=== PATIENT | female | born 1955 | race Caucasian/White ===

== ENCOUNTER 2022-01-26 19:39 | Inpatient (IN) | payer MEDICARE, OTHER ==
[~2022-01-26] VITALS: Ht 170.2 cm; Wt 82.7 kg
[2022-01-26 20:31] LABS: HEMATOCRIT 35.4 % (31.2-41.9); MEAN CORPUSCULAR VOLUME 94.3 fL (75.5-95.3); PLATELET COUNT (AUTO) 440 K/uL (179-408)
[2022-01-26 20:41] LABS: CHLORIDE 96 mmol/L (98-107); CREATININE 0.7 mg/dL (0.6-1.3); GLUCOSE 127 mg/dL (74-106); POTASSIUM 3.2 mmol/L (3.5-5.1); UREA NITROGEN, BLOOD 11 mg/dL (7-18)
[2022-01-26 20:42] LABS: CARBON DIOXIDE 48 mmol/L (21-32)
[2022-01-26 20:55] LABS: THYROID STIMULATING HORMONE 0.947 mIU/mL (0.358-3.740)
[2022-01-26 20:58] LABS: ALANINE AMINOTRANSFERASE 17 U/L (14-59); ALKALINE PHOSPHATASE 67 U/L (50-136); ASPARTATE AMINOTRANSFERASE 16 U/L (15-37); BILIRUBIN,DIRECT < 0.1 mg/dL (0.0-0.2); BILIRUBIN,TOTAL 0.1 mg/dL (0.2-1.0); TOTAL PROTEIN, SERUM 6.9 g/dL (6.4-8.2)
[2022-01-26] MEDS ORDERED: ETOMIDATE 20 MG/10 ML VIAL IV ONE (21:45)
[2022-01-26] MEDS ORDERED: PIPERACILLIN SODIUM/TAZOBACTAM 3.375 G in IV DEXTROSE 5% 50 ML IV ONE (21:45)
[2022-01-26] MEDS ORDERED: SUCCINYLCHOLINE CHLORIDE 200 MG/10 ML VIAL IV ONE (21:45)
[2022-01-26] MEDS ORDERED: AZITHROMYCIN IV 500 MG in IV DEXTROSE 5% 250 ML IV ONE (21:45)
[2022-01-26] MEDS ORDERED: PROPOFOL 100 ML IV PRN (21:45)
[2022-01-26] MEDS ORDERED: FENTANYL CITRATE 100 MCG/2 ML AMPUL ONE (22:34)
[2022-01-26] MEDS ORDERED: IV NS 1000 ML 1,000 ML IV ONE (23:45)
[2022-01-26] MEDS ORDERED: VANCOMYCIN 1G/D5W 200 ML PIGGYBACK IV ONE (23:45)
[2022-01-27] MEDS ORDERED: EPINEPHRINE 1:10,000 1 MG/10 ML DISP.SYRIN ONE
[2022-01-27 00:10] LABS: ABG BASE EXCESS 7.1 mmol/L; ABG HCO3 32.6 mmol/L; ABG PCO2 50.9 mmHg (35.0-45.0); ABG PH 7.425 (7.350-7.450); ABG PO2 56.5 mmHg (75.0-100.0); ABG SITE LEFT RADIAL; COHb 0.3 % (0.5-1.5); MetHb 0.1 % (0.0-1.5); O2Hb 91.1 % (94.0-97.0); VENT MODE VENT - A/C; VT, ABG 500 mL
[2022-01-27] MEDS ORDERED: NOREPINEPHRINE BITARTRATE 4 MG/4 ML VIAL IV ONE ×5 (00:12→12:59)
[2022-01-27] MEDS ORDERED: VANCOMYCIN IV 200 ML ONE (00:14)
[2022-01-27] MEDS ORDERED: PIPERACILLIN/TAZOBACTAM/D5W 50 ML IV ONE (00:14)
[2022-01-27] MEDS ORDERED: NOREPINEPHRINE BITARTRATE 8 MG in IV NORMAL SALINE 242 ML IV PRN ×3 (00:15→10:15)
[2022-01-27] MEDS ORDERED: PROPOFOL 100 ML ONE ×2 (00:55→05:37)
[2022-01-27] MEDS ORDERED: AZITHROMYCIN 500MG/ D5W 250ML IVPB **ER PYXIS ONLY IV ONE (00:56)
[2022-01-27] MEDS ORDERED: DORZ10DR11 LEFTEYE (01:00)
[2022-01-27] MEDS ORDERED: BUSP5TAB3 PO (01:00)
[2022-01-27] MEDS ORDERED: AMLO-212 PO (01:00)
[2022-01-27] MEDS ORDERED: HYDR12.55 PO (01:00)
[2022-01-27] MEDS ORDERED: GABA-532 PO (01:00)
[2022-01-27] MEDS ORDERED: MAGN400O6 PO (01:00)
[2022-01-27] MEDS ORDERED: ONDA-104 PO (01:00)
[2022-01-27] MEDS ORDERED: ZOLP5TAB2 PO (01:00)
[2022-01-27] MEDS ORDERED: BRIN8DRO OP (01:00)
[2022-01-27] MEDS ORDERED: CYCL5TAB PO (01:00)
[2022-01-27] MEDS ORDERED: BUSP10TA3 PO (01:00)
[2022-01-27] MEDS ORDERED: DOCU-141 PO (01:00)
[2022-01-27] MEDS ORDERED: NETA2.5D3 EACHEYE (01:00)
[2022-01-27] MEDS ORDERED: BUDE10.22 IH (01:00)
[2022-01-27] MEDS ORDERED: PILO15DR35 LEFTEYE (01:00)
[2022-01-27] MEDS ORDERED: CAPT25TA3 PO (01:00)
[2022-01-27] MEDS ORDERED: LEVE500T9 PO (01:00)
[2022-01-27] MEDS ORDERED: MEMA10TA PO (01:00)
[2022-01-27] MEDS ORDERED: HYDR-894 PO (01:00)
[2022-01-27] MEDS ORDERED: TRAZ-257 PO (01:00)
[2022-01-27] MEDS ORDERED: FAMO20TA8 PO (01:00)
[2022-01-27] MEDS ORDERED: METO-357 PO (01:00)
[2022-01-27] MEDS ORDERED: ACET-2154 PO (01:00)
[2022-01-27] MEDS ORDERED: ALBU2.5V38 IH (01:00)
[2022-01-27] MEDS ORDERED: QUET50TA PO (01:00)
[2022-01-27] MEDS ORDERED: FOLI1TAB94 PO (01:00)
[2022-01-27] MEDS ORDERED: diphenhydrAMINE 50 MG/1 ML VIAL IV ONE (02:15)
[2022-01-27] MEDS ORDERED: ONDANSETRON 4 MG/2 ML VIAL IV PRN (02:45)
[2022-01-27] MEDS ORDERED: FENTANYL CITRATE 100 MCG/2 ML AMPUL IV ONE (02:45)
[2022-01-27] MEDS ORDERED: hydrALAZINE HCL 20 MG/1 ML VIAL IV PRN (02:45)
[2022-01-27] MEDS ORDERED: ACETAMINOPHEN 325 MG TABLET PO PRN (02:45)
[2022-01-27] MEDS ORDERED: ALBUTEROL SULFATE 2.5 MG/3 ML NEBU NEB PRN (03:45)
--- NOTE | 2022-01-27 07:45 | NUR ---
Dr. De La Fuente at bedside for right femoral central line insertion.
--- NOTE | 2022-01-27 07:54 | NUR ---
PT RECEIVED ON LUNA VENTILATOR WITH VENT SETTINGS OF AC 18, VT 500, PEEP +5, FIO2 100%. PT IS ORALLY INTUBATED WITH A 7.5 ETT APPROXIMATELY 23CM AT THE LIP LINE. ETT IS PATENT AND SECURED VIA ANCHOR FAST. ETT TO BE READJUSTED Q2. VENT ALARMS CHECKED, ARE ON AND AUDIBLE. ORAL CARE DONE. SUCTION SMALL AMOUNT OF PALE SECRETIONS. AMBU BAG IS AT BEDSIDE. VENT IS PLUGGED IN TO RED EMERGENCY OUTLET. WILL CONTINUE TO MONITOR. WILL TITRATE FIO2 ACCORDINGLY.
[2022-01-27 08:31] LABS: BILIRUBIN,TOTAL 0.6 mg/dL (0.2-1.0); CREATININE 1.4 mg/dL (0.6-1.3); MAGNESIUM 1.3 mg/dL (1.8-2.4); TOTAL PROTEIN, SERUM 5.7 g/dL (6.4-8.2)
[2022-01-27 08:32] LABS: POTASSIUM 2.5 mmol/L (3.5-5.1)
--- NOTE | 2022-01-27 08:32 | NUR ---
Lab notified that potassium is 2.5. Will notify
--- NOTE | 2022-01-27 08:49 | NUR ---
Notified Dr Momin about potassium level.
[2022-01-27 08:52] LABS: HEMATOCRIT 33.2 % (31.2-41.9); MEAN CORPUSCULAR HEMOGLOBIN 29.2 uug (24.7-32.8); MEAN CORPUSCULAR VOLUME 93.4 fL (75.5-95.3); PLATELET COUNT (AUTO) 460 K/uL (179-408)
[2022-01-27] MEDS ORDERED: FAMOTIDINE 20 MG TABLET PO SCH (09:00)
[2022-01-27] MEDS: QUETIAPINE FUMARATE 25 MG TABLET PO SCH (09:00)
[2022-01-27] MEDS ORDERED: levETIRAcetam 500 MG TABLET PO SCH (09:00)
[2022-01-27] MEDS ORDERED: Brinzolamide/Brimonid Tart (Simbrinza 1%-0.2% Eye Drops) OP SCH (09:00)
[2022-01-27] MEDS: FOLIC ACID 1 MG TABLET PO SCH (09:00)
[2022-01-27] MEDS ORDERED: METOPROLOL SUCCINATE XL 50 MG TAB.SR.24H PO SCH ×2 (09:00)
[2022-01-27] MEDS ORDERED: busPIRone 10 MG TABLET PO SCH ×2 (09:00)
[2022-01-27] MEDS: GABAPENTIN 100 MG CAPSULE PO SCH ×3 (09:00→17:00)
[2022-01-27] MEDS: FLUTICASONE/VILANTEROL 1 EACH BLST.W.DEV INH SCH (09:00)
[2022-01-27] MEDS ORDERED: AMLODIPINE 5 MG TABLET PO SCH ×2 (09:00)
[2022-01-27] MEDS: MEMANTINE HCL 10 MG TABLET PO SCH (09:00)
[2022-01-27] MEDS: ASPIRIN 81 MG TAB.CHEW PO SCH (09:00)
[2022-01-27] MEDS ORDERED: PILOCARPINE 1% OPHT DROP 15 ML BOTTLE LEFTEYE SCH (09:00)
[2022-01-27] MEDS ORDERED: HEPARIN SODIUM,PORCINE 5,000 UNITS/ML VIAL SQ SCH (09:00)
[2022-01-27] MEDS ORDERED: MAGNESIUM SULFATE/D5W 100 ML IV SCH (09:15)
[2022-01-27] MEDS ORDERED: MAGNESIUM SULFATE/D5W 100 ML ONE (09:25)
[2022-01-27] MEDS ORDERED: POTASSIUM CHLORIDE 50 ML ONE (09:25)
[2022-01-27] MEDS ORDERED: MAGNESIUM SULFATE/D5W 300 ML ONE (09:26)
[2022-01-27] MEDS ORDERED: POTASSIUM CHLORIDE 150 ML ONE (09:26)
[2022-01-27 09:33] VITALS: BP 88/57
[2022-01-27] MEDS: POTASSIUM CHLORIDE 50 ML IV SCH ×4 (09:49→12:00)
--- NOTE | 2022-01-27 10:20 | NUR ---
Spoke with ICU MD - pt intubated, current monitor in room sometimes shows vitals unable to determine if medications need to be titrated, troubleshooting monitors with RT Mariella) help. Pt has 2 chest tube, currently Levo @0.6mcg/ IVF @ 125ml, Propofol @ 10mcg, Potassium currently being replaced - will replace Mag after all K+ has been infused. Portable suction cansister at bedside - bilateral chest tube attached to current wall suction - 100 Fi02 on Vent / peep of 5/ TV 500, R 18 - Barrera - urine output 200 since 6am MD acknowledge - will continue to do the best we can, untilpt can be transferred to the unit.
[2022-01-27] MEDS ORDERED: PIPERACILLIN SODIUM/TAZOBACTAM 3.375 G in IV DEXTROSE 5% 50 ML IV ONE (12:00)
[2022-01-27] MEDS: FENTANYL CITRATE/PF 1,000 MCG in IV NORMAL SALINE 80 ML IV PRN ×2 (12:30→12:40)
[2022-01-27] MEDS ORDERED: NOREPINEPHRINE BITARTRATE 32 MG in IV NORMAL SALINE 218 ML IV PRN (13:30)
--- NOTE | 2022-01-27 14:05 | NUR ---
PT BROUGHT DOWN FOR CT-SCAN. REMAINS ON LUNA VENTILATOR. AMBU BAG AT BEDSIDE. NO ISSUES NOTED.
[2022-01-27 15:22] LABS: CREATININE 1.5 mg/dL (0.6-1.3); POTASSIUM 3.4 mmol/L (3.5-5.1)
[2022-01-27] MEDS: DORZOLAMIDE/TIMOLOL OPHT DROP 10 ML BOTTLE LEFTEYE SCH (15:25)
[2022-01-27] MEDS ORDERED: SUCCINYLCHOLINE CHLORIDE 200 MG/10 ML VIAL IV ONE (15:44)
--- NOTE | 2022-01-27 17:35 | NUR ---
pt developed severe crepitus in bilateral upper extremity, across the chest, up into the neck and face - ED MD notified , consulted with ICU Team - R. chest tube removed - pt sent for Chest and Neck CT see results - Unable to get a steady BP throughout shift due to severe crepitus in bilateral UE , when BP cuff removed looks like a sea of bubbles fill the Upper arms - notified ED Md - referred to Dr. Dockery for potential A.Line for accurate BP reading - spoke with Dr. Dockery suggested we take BP on bilateral LE - 4 attempts made on bilateral extremity - unable to obtain a reading. Follow up call placed to to notify him, awaiting a call back. EKG leads changed and repositioned several times unable to get a EKG reading, HR noted however of 91 - extreme crepitus in chest upper chest cavity. - pt suctioned throughout shift via RT and RN , oral care done q4h - pt had 1 BM - temporal temp checked 96.3 extremities feel cold to the touch, pillows used to elevate arms, HOB 30 degrees , bilateral LE elevated on pillows - rectal temp done 100.3 - Dr. Dockery called back - will locate someone who can insert an A.line for accurate BP. Spoke with CN - need a monitor in the room that can monitor an A.Line once inserted or pt needs to be moved to a room with the proper equipment to monitor her critical status. Vent settings have been weaned starting FIo2 was 100% at time of documentation FIo2 is @ 70% - TV remains @500 Peep @ 5 and Rate @ 18. NO NGT or OGT was placed - unable to give PO meds. peripheral IV x 2 in R (W) and (FA) removed - not patent. Echo was unsucceful - tech states too much air he could not get a good picture. sent whatever image he could obtain to the recoverer. Skin Pt has a skin tear on the R. lateral ac area - excoritation under bilateral breast - groin area red, buttocks area red - no barrier cream available. subtle changes in position made to offload pressure to sacrum. Pt recieved (4) bags of Potassium/ (4) bags of magnesium , Propofol stopped around 1230 - Versed and Fentanyl started - Fentanyl at 50mcg d/t HR greater than 100 - received ABX around 1500 from RX.
[2022-01-27] MEDS ORDERED: VANCOMYCIN IV 1,000 MG in IV DEXTROSE 5% 250 ML IV SCH (18:00)
[2022-01-27] MEDS ORDERED: methylPREDNISolone SOD SUCC 40 MG/ML VIAL ONE ×2 (18:31→21:03)
[2022-01-27] MEDS: methylPREDNISolone SOD SUCC 40 MG/ML VIAL IV SCH ×2 (18:33→22:00)
[2022-01-27] MEDS: PIPERACILLIN SODIUM/TAZOBACTAM 3.375 G in IV DEXTROSE 5% 100 ML IV SCH (20:28)
[2022-01-27] MEDS: ATORVASTATIN 40 MG TABLET PO SCH (21:00)
[2022-01-27] MEDS ORDERED: HEPARIN SODIUM,PORCINE 5,000 UNITS/ML VIAL ONE (21:04)
[2022-01-28] VITALS (36 sets, daily range): BP systolic 76–246; BP diastolic 45–101
[2022-01-28] MEDS ORDERED: PHENYLEPHRINE IV 100 MG in IV NORMAL SALINE 240 ML IV PRN (01:00)
[2022-01-28] MEDS ORDERED: PHENYLEPHRINE 10 MG/1 ML VIAL ONE (01:08)
[2022-01-28] MEDS ORDERED: FENTANYL CITRATE 100 MCG/2 ML AMPUL ONE (03:14)
[2022-01-28] MEDS: FENTANYL CITRATE/PF 1,000 MCG in IV NORMAL SALINE 80 ML IV PRN (03:40)
[2022-01-28] MEDS: PIPERACILLIN SODIUM/TAZOBACTAM 3.375 G in IV DEXTROSE 5% 100 ML IV SCH ×3 (04:57→20:31)
[2022-01-28 05:03] LABS: HEMATOCRIT 29.9 % (31.2-41.9); MEAN CORPUSCULAR HEMOGLOBIN 29.7 uug (24.7-32.8); MEAN CORPUSCULAR VOLUME 93.3 fL (75.5-95.3); PLATELET COUNT (AUTO) 411 K/uL (179-408)
[2022-01-28 05:13] LABS: BILIRUBIN,TOTAL 0.4 mg/dL (0.2-1.0); CREATININE 1.7 mg/dL (0.6-1.3); MAGNESIUM 2.6 mg/dL (1.8-2.4); POTASSIUM 3.1 mmol/L (3.5-5.1); TOTAL PROTEIN, SERUM 5.6 g/dL (6.4-8.2)
[2022-01-28] MEDS: methylPREDNISolone SOD SUCC 40 MG/ML VIAL IV SCH ×3 (06:00→22:13)
[2022-01-28 06:05] LABS: ABG BASE EXCESS 6.6 mmol/L; ABG HCO3 26.1 mmol/L; ABG PCO2 22.8 mmHg (35.0-45.0); ABG PH 7.677 (7.350-7.450); ABG PO2 67.7 mmHg (75.0-100.0); ABG SITE LEFT RADIAL; ABG TOTAL HEMOGLOBIN 11.1 G/dL (12.0-16.0); COHb 0.1 % (0.5-1.5); MetHb 0.3 % (0.0-1.5); O2Hb 96.5 % (94.0-97.0); VENT MODE VENT - A/C; VT, ABG 500 mL
[2022-01-28] MEDS ORDERED: FUROSEMIDE 20 MG/2 ML VIAL IV SCH (06:45)
[2022-01-28] MEDS ORDERED: POTASSIUM PHOSPHATE MM 30 MMOL in IV NORMAL SALINE 250 ML IV ONE (06:45)
[2022-01-28] MEDS ORDERED: FUROSEMIDE 20 MG/2 ML VIAL ONE (06:46)
[2022-01-28] MEDS ORDERED: methylPREDNISolone SOD SUCC 40 MG/ML VIAL ONE ×3 (06:46→22:11)
--- NOTE | 2022-01-28 07:20 | NUR ---
Received pt. On ventilator ETT 7.5 to 130 wall suction continuously when questioned endorsing rn. did not know order setting. Patient move to room 1A. Ventilator A/C 18, TV 500, FIO2 65%. Peep+5. On patient monitor with no cardiac reading. Unreadable saturation. Versed running at 2mg/hr. Fentanyl 50mcg/hr. Chest tube with chamber mixed with blood. Barrera to gravity Central line patent. Patient with severe crepitus enlarge chest area neck with underskin air noted. breast area blown with subcutaneous air. BUE bruises and redness in the sacral area. Will continue to monitor.
--- NOTE | 2022-01-28 07:25 | NUR ---
Received pt. with low sbp 76/55 HR 88 with no reading on/off rehabilitation technician notified and phenylephrine maxed out while awaiting for arterial line insertion.
--- NOTE | 2022-01-28 07:35 | NUR ---
Pulmonary services Dr. Ureña in the unit to examine pt. report given and He was present when chest tube changed and aware of severe blood cloth noted at chest tube insertion site and tubing. As stated by him "Dr. Gracia will be consulted." And order to change TV to 400 received and implemented at this time. RT Uriah at bedside.
--- NOTE | 2022-01-28 08:00 | NUR ---
After settling pt. in room 1A Instructional Services Librarian called to report low sbp reading orders to start levophed received.
[2022-01-28] MEDS: POTASSIUM PHOSPHATE MM 15 MMOL in IV NORMAL SALINE 250 ML IV SCH ×2 (08:15→14:15)
[2022-01-28] MEDS ORDERED: NOREPINEPHRINE BITARTRATE 32 MG in IV NORMAL SALINE 218 ML IV PRN (08:30)
[2022-01-28] MEDS: FLUTICASONE/VILANTEROL 1 EACH BLST.W.DEV INH SCH (09:00)
[2022-01-28] MEDS: QUETIAPINE FUMARATE 25 MG TABLET PO SCH (09:00)
[2022-01-28] MEDS: MEMANTINE HCL 10 MG TABLET PO SCH (09:00)
[2022-01-28] MEDS: ASPIRIN 81 MG TAB.CHEW PO SCH (09:00)
[2022-01-28] MEDS: GABAPENTIN 100 MG CAPSULE PO SCH ×3 (09:00→17:00)
[2022-01-28] MEDS: DORZOLAMIDE/TIMOLOL OPHT DROP 10 ML BOTTLE LEFTEYE SCH ×2 (09:00→16:49)
[2022-01-28] MEDS: FOLIC ACID 1 MG TABLET PO SCH (09:00)
--- NOTE | 2022-01-28 09:05 | NUR ---
Cardiology services, Dr. Momin in the unit Arterial line insertion in progress.
--- NOTE | 2022-01-28 09:25 | NUR ---
Arterial line in place with fist reading of 246/101 levophed off at this time Bonderizer Operator Dr. Momin at bedside.
[2022-01-28] MEDS: FAMOTIDINE. 20 MG/2 ML VIAL IV SCH (09:44)
[2022-01-28] MEDS ORDERED: FAMOTIDINE. 20 MG/2 ML VIAL IV ONE (09:51)
[2022-01-28] MEDS: MIDAZOLAM HCL 50 MG in IV NORMAL SALINE 40 ML IV PRN ×2 (10:01→13:31)
[2022-01-28] MEDS: PHENYLEPHRINE IV 100 MG in IV NORMAL SALINE 240 ML IV PRN ×2 (10:02→11:42)
[2022-01-28] MEDS: IV D5/ 0.9% NACL 1,000 ML IV PRN (11:40)
--- NOTE | 2022-01-28 13:06 | NUR ---
FIO2 down to 50%
[2022-01-28] MEDS ORDERED: HEPARIN SODIUM,PORCINE 5,000 UNITS/ML VIAL ONE ×2 (13:28→22:11)
[2022-01-28] MEDS: HEPARIN SODIUM,PORCINE 5,000 UNITS/ML VIAL SQ SCH ×2 (13:36→22:14)
[2022-01-28 13:59] LABS: ABG BASE EXCESS 4.3 mmol/L; ABG HCO3 23.4 mmol/L; ABG PCO2 20.4 mmHg (35.0-45.0); ABG PH 7.678 (7.350-7.450); ABG PO2 68.7 mmHg (75.0-100.0); ABG SITE A-Line; ABG TOTAL HEMOGLOBIN 10.9 G/dL (12.0-16.0); COHb 0.3 % (0.5-1.5); MetHb 0.3 % (0.0-1.5); VENT MODE VENT - A/C; VT, ABG 400 mL
--- NOTE | 2022-01-28 14:23 | NUR ---
1400 ABG results notified to outplacement consultant Dr. Ureña order to reduce Tv 350 and RRate 15. orders informed to RT. Kruse and implemented.
[2022-01-28] MEDS ORDERED: PILOCARPINE 1% OPHT DROP 15 ML BOTTLE LEFTEYE SCH (17:00)
--- NOTE | 2022-01-28 18:33 | NUR ---
Left patient On ventilator ETT 7.5 LL23, A/C 15, Tv 350, FIO2 50%, with saturation between 95-98%. On radiation monitor and Sinus rhythm. Arterial line paten pleth smooth and even reading within desired limits, phenylephrine running at 1mcg/kg/min.Chest tube with insertion site clogged. Neuro-stein pt. remains on versed running at 2mg/hr and fentanyl running at 50mcg/kg/min. Foleywith adequate output. Will endorse to incoming shift.
--- NOTE | 2022-01-28 20:10 | NUR ---
called and infromed Dr. Desai who is oncall for cardiothoracic that the audible air leak from Left insertion site will not affect patient at this point. They were able to reciew CXR earlier and is most likely not in place and is just subcutaneous only. no orders received.
[2022-01-28] MEDS: ATORVASTATIN 40 MG TABLET PO SCH (20:51)
[2022-01-28] MEDS: levETIRAcetam IV 500 MG in IV DEXTROSE 5% 100 ML IV SCH (20:51)
[2022-01-29] VITALS (32 sets, daily range): BP systolic 89–167; BP diastolic 48–81
--- NOTE | 2022-01-29 00:20 | NUR ---
PATIENT ON CONT LUNA VENT WITH 7.5 ET/TUBE IN PLACE WITH ANCHOR FAST MOVE Q2 HOURS, CURRENT VENT SETTINGS, A/C 15, VT 350, PEEP5 , FIO2 @ 50% , SUCTION VERY LITTLE SECRETIONS, AND SUCTION MOUTH WITH KEHINDE AC WITH A/LINE IN PLACE, NO VENT CHANGES MADE, CHANGE HME, ALL VENT ALARMS GOOD, AMBU BAG AT BEDSIDE, SAT 97%. APPROX. D CRUZITO FARFAN Addendum: 01/29/22 at 0024 by LISBETH EAST RT Amended: Links added.
[2022-01-29] MEDS: FENTANYL CITRATE/PF 1,000 MCG in IV NORMAL SALINE 80 ML IV PRN (01:49)
[2022-01-29] MEDS: PIPERACILLIN SODIUM/TAZOBACTAM 3.375 G in IV DEXTROSE 5% 100 ML IV SCH ×3 (04:30→20:00)
[2022-01-29 05:02] LABS: ALANINE AMINOTRANSFERASE 81 U/L (14-59); ALKALINE PHOSPHATASE 68 U/L (50-136); ASPARTATE AMINOTRANSFERASE 76 U/L (15-37); BILIRUBIN,DIRECT < 0.1 mg/dL (0.0-0.2); BILIRUBIN,TOTAL 0.2 mg/dL (0.2-1.0); CARBON DIOXIDE 25 mmol/L (21-32); CHLORIDE 107 mmol/L (98-107); CREATININE 1.2 mg/dL (0.6-1.3); GLUCOSE 215 mg/dL (74-106); MAGNESIUM 1.9 mg/dL (1.8-2.4); PHOSPHOROUS 2.9 mg/dL (2.5-4.9); TOTAL PROTEIN, SERUM 5.3 g/dL (6.4-8.2); UREA NITROGEN, BLOOD 22 mg/dL (7-18); VANCOMYCIN,RANDOM 15.7 ug/mL (18.0-26.0)
[2022-01-29 05:14] LABS: POTASSIUM 1.7 mmol/L (3.5-5.1)
[2022-01-29] MEDS ORDERED: POTASSIUM CHLORIDE 50 ML IV SCH ×2 (05:30→17:00)
[2022-01-29 05:32] LABS: MEAN CORPUSCULAR HEMOGLOBIN 29.4 uug (24.7-32.8); MEAN CORPUSCULAR VOLUME 90.2 fL (75.5-95.3); PLATELET COUNT (AUTO) 388 K/uL (179-408)
[2022-01-29] MEDS ORDERED: POTASSIUM CHLORIDE 300 ML ONE (05:32)
--- NOTE | 2022-01-29 05:41 | NUR ---
Per Dr. Mitchell ordered 40 meq KCL IV BID x 3 days. and 2 gram calcium gluconate.
[2022-01-29] MEDS ORDERED: CALCIUM GLUCONATE IV 1 GM in IV NORMAL SALINE 100 ML IV ONE (05:45)
[2022-01-29] MEDS: POTASSIUM CHLORIDE 50 ML IV SCH ×8 (05:45→17:55)
[2022-01-29] MEDS ORDERED: methylPREDNISolone SOD SUCC 40 MG/ML VIAL ONE ×4 (05:50→23:31)
[2022-01-29] MEDS: methylPREDNISolone SOD SUCC 40 MG/ML VIAL IV SCH ×2 (05:51→18:02)
[2022-01-29 06:24] LABS: ABG BASE EXCESS 3.5 mmol/L; ABG HCO3 24.3 mmol/L; ABG PCO2 25.1 mmHg (35.0-45.0); ABG PH 7.604 (7.350-7.450); ABG SITE A-Line; ABG TOTAL HEMOGLOBIN 10.4 G/dL (12.0-16.0); COHb 0.3 % (0.5-1.5); MetHb 0.3 % (0.0-1.5); O2Hb 96.6 % (94.0-97.0); VENT MODE VENT - A/C; VT, ABG 350 mL
[2022-01-29 06:51] LABS: LYMPHOCYTES % (MANUAL) 5 % (20-40); MONOCYTES % (MANUAL) 3 % (2-10); NEUTROPHILS % (MANUAL) 92 % (42-75)
[2022-01-29] MEDS: HEPARIN SODIUM,PORCINE 5,000 UNITS/ML VIAL SQ SCH ×2 (09:00→21:00)
[2022-01-29] MEDS: ASPIRIN 81 MG TAB.CHEW PO SCH (09:00)
[2022-01-29] MEDS: QUETIAPINE FUMARATE 25 MG TABLET PO SCH (09:00)
[2022-01-29] MEDS ORDERED: POTASSIUM CHLORIDE 20 MEQ POWDER PACKET GT ONE (09:00)
[2022-01-29] MEDS: GABAPENTIN 100 MG CAPSULE PO SCH ×3 (09:00→17:00)
[2022-01-29] MEDS: MEMANTINE HCL 10 MG TABLET PO SCH (09:00)
[2022-01-29] MEDS: FOLIC ACID 1 MG TABLET PO SCH (09:00)
[2022-01-29] MEDS ORDERED: CALCIUM GLUCONATE IV 2 GM in IV NORMAL SALINE 100 ML IV ONE (09:00)
[2022-01-29] MEDS ORDERED: VANCOMYCIN IV 1,000 MG in IV DEXTROSE 5% 250 ML IV ONE (12:00)
[2022-01-29] MEDS: DORZOLAMIDE/TIMOLOL OPHT DROP 10 ML BOTTLE LEFTEYE SCH ×2 (12:56→18:07)
[2022-01-29] MEDS ORDERED: levETIRAcetam 500 MG/5 ML VIAL IV ONE ×2 (13:10→23:31)
[2022-01-29] MEDS ORDERED: FAMOTIDINE. 20 MG/2 ML VIAL IV ONE (13:10)
[2022-01-29 13:19] LABS: ABG BASE EXCESS 4.1 mmol/L; ABG HCO3 25.5 mmol/L; ABG PCO2 27.5 mmHg (35.0-45.0); ABG PH 7.585 (7.350-7.450); ABG PO2 76.3 mmHg (75.0-100.0); ABG SITE A-Line; ABG TOTAL HEMOGLOBIN 9.9 G/dL (12.0-16.0); COHb 0.3 % (0.5-1.5); MetHb 0.3 % (0.0-1.5); O2Hb 95.1 % (94.0-97.0); VENT MODE VENT - A/C; VT, ABG 350 mL
[2022-01-29 16:07] LABS: CREATININE 1.2 mg/dL (0.6-1.3); MAGNESIUM 2.1 mg/dL (1.8-2.4)
[2022-01-29 16:16] LABS: POTASSIUM 2.7 mmol/L (3.5-5.1)
[2022-01-29] MEDS: FAMOTIDINE. 20 MG/2 ML VIAL IV SCH (17:50)
[2022-01-29] MEDS: levETIRAcetam IV 500 MG in IV DEXTROSE 5% 100 ML IV SCH ×2 (17:50→21:00)
[2022-01-29] MEDS ORDERED: methylPREDNISolone SOD SUCC 125 MG/2 ML VIAL ONE (17:54)
--- NOTE | 2022-01-29 19:51 | NUR ---
Shift Assessment R. Chest tube inserted approximately 10am extreme crepitus started to resolve (approximately 85% for entire shift). R.chest tube output 125ml serosanguinous fluid l.chest tube was blocked with a clot at beginning of shift tube readjusted, total output for shift 110 ml Barrera output 500ml for shift pt has a Ol[place] Sedation vacation done (versed and Fentanyl off ) no perpuseful movment Ct Head done EEG done Bao weaned down to 0.5mcg - at times pt hypertensive, medication suspended and restarted when SBP falls below 100 pt given full soap water bath, all linens changed, no BM noted for shift minor secretions from mouth and ET tube during oral care Q4h NGT/OGT pending - handed off to night court magistrate to attempt ( Manifold Builder wants us to be aggressive with K+ replacement ( oral K+ replacement needed in conjunction with IV K+) Vent settings being weaned TV 350, RR 12, FIO2 50%, peep 5 HOB 30 degrees BP medication needs to be changed, pt super sensitive goes hypertensive on lowest dose 0.5mcg of Bao BP 164/75 - when bao is off Bp falls 90/40's
[2022-01-29] MEDS: LATANOPROST OPHT DROP 2.5 ML BOTTLE EACHEYE SCH (21:00)
[2022-01-29] MEDS: ATORVASTATIN 40 MG TABLET PO SCH (21:00)
[2022-01-29] MEDS ORDERED: POTASSIUM CHLORIDE 200 ML IV SCH (21:00)
[2022-01-30] VITALS (8 sets, daily range): BP systolic 103–140; BP diastolic 49–68
--- NOTE | 2022-01-30 02:04 | NUR ---
PATIENT ON CONT LUNA VENT WITH 7.5 ET/TUBE IN PLACE AND SECURED WITH ANCHOR FAST, SETTINGS, A/C12, 350ML, PEEP5, FIO2 @ 50%, PT SEDATED, ABG IN AM, BEFORE 0700, SAT 97%.Araceli EAST RCP Addendum: 01/30/22 at 0205 by LISBETH EAST RT Amended: Links added.
[2022-01-30 05:38] LABS: HEMATOCRIT 26.8 % (31.2-41.9); MEAN CORPUSCULAR HEMOGLOBIN 29.9 uug (24.7-32.8); MEAN CORPUSCULAR VOLUME 91.3 fL (75.5-95.3); PLATELET COUNT (AUTO) 328 K/uL (179-408)
[2022-01-30 05:40] LABS: CREATININE 1.2 mg/dL (0.6-1.3); MAGNESIUM 1.7 mg/dL (1.8-2.4); PHOSPHOROUS 2.3 mg/dL (2.5-4.9); VANCOMYCIN,RANDOM 23.9 ug/mL (18.0-26.0)
[2022-01-30 05:42] LABS: POTASSIUM 2.6 mmol/L (3.5-5.1)
--- NOTE | 2022-01-30 05:45 | NUR ---
Notifed Michelle CORDON of patients Potassium lab result of 2.6 from [email or web address].
[2022-01-30 06:10] LABS: ABG BASE EXCESS -0.4 mmol/L; ABG HCO3 21.3 mmol/L; ABG PCO2 25.5 mmHg (35.0-45.0); ABG PO2 122.2 mmHg (75.0-100.0); ABG SITE A-Line; ABG TOTAL HEMOGLOBIN 9.7 G/dL (12.0-16.0); COHb 0.3 % (0.5-1.5); MetHb 0.1 % (0.0-1.5); O2Hb 98.1 % (94.0-97.0); VENT MODE VENT - A/C; VT, ABG 350 mL
[2022-01-30] MEDS ORDERED: MISCELLANEOUS MED IV PRN (06:45)
[2022-01-30] MEDS: POTASSIUM CHLORIDE 50 ML IV SCH ×4 (07:00→10:00)
--- NOTE | 2022-01-30 07:55 | NUR ---
RECEIVED PT ON CONT. MECHANICAL VENTILATION WITH SETTINGS OF AC 12, VT 350, PEEP +5, FIO2 50%. SPOKE WITH DR. PRICE ON THE PHONE; VENT CHANGES ORDERED. NEW SETTINGS ARE AC 10, VT 350, FIO2 50%. PEEP DC'D. SPO2 94% AND ABOVE TO BE MAINTAINED PER ORDER. WILL TITRATE ACCORDINGLY. PT IS ORALLY INTUBATED WITH 7.5 ETT APPROX 23 CM AT THE LIP. ORAL CARE DONE. HME CHANGED. ANCHOR FAST READJUSTED Q2. VENT ALARMS CHECKED, ARE ON AND AUDIBLE. AMBU BAG AT BEDSIDE. VENT PLUGGED INTO RED EMERGENCY OUTLET. RN IS AWARE OF VENT CHANGES. WILL CONTINUE TO MONITOR.
[2022-01-30] MEDS ORDERED: POTASSIUM PHOSPHATE MM 15 MMOL in IV NORMAL SALINE 250 ML IV ONE (08:00)
[2022-01-30] MEDS: QUETIAPINE FUMARATE 25 MG TABLET PO SCH (08:42)
[2022-01-30] MEDS ORDERED: POTASSIUM CHLORIDE 200 ML ONE (08:57)
[2022-01-30] MEDS ORDERED: HEPARIN SODIUM,PORCINE 5,000 UNITS/ML VIAL ONE ×2 (08:57→20:04)
[2022-01-30] MEDS ORDERED: FOLIC ACID 1 MG TABLET ONE (08:57)
[2022-01-30] MEDS ORDERED: ASPIRIN 325 MG TABLET ONE (08:57)
[2022-01-30] MEDS ORDERED: FAMOTIDINE. 20 MG/2 ML VIAL IV ONE (08:58)
[2022-01-30] MEDS: MEMANTINE HCL 10 MG TABLET PO SCH (09:00)
[2022-01-30] MEDS: levETIRAcetam IV 500 MG in IV DEXTROSE 5% 100 ML IV SCH ×2 (09:00→21:00)
[2022-01-30] MEDS: FLUTICASONE/VILANTEROL 1 EACH BLST.W.DEV INH SCH (09:00)
[2022-01-30] MEDS: ASPIRIN 81 MG TAB.CHEW PO SCH (09:00)
[2022-01-30] MEDS: HEPARIN SODIUM,PORCINE 5,000 UNITS/ML VIAL SQ SCH ×2 (09:00→21:00)
[2022-01-30] MEDS ORDERED: POTASSIUM CHLORIDE 50 ML IV SCH ×2 (09:00→17:00)
[2022-01-30] MEDS: DORZOLAMIDE/TIMOLOL OPHT DROP 10 ML BOTTLE LEFTEYE SCH ×2 (09:00→17:00)
[2022-01-30] MEDS: GABAPENTIN 100 MG CAPSULE PO SCH ×3 (09:00→17:00)
[2022-01-30] MEDS: FOLIC ACID 1 MG TABLET PO SCH (09:00)
[2022-01-30] MEDS: FAMOTIDINE. 20 MG/2 ML VIAL IV SCH (09:00)
[2022-01-30] MEDS: MAGNESIUM SULFATE/D5W 100 ML IV SCH ×2 (12:00→13:00)
[2022-01-30] MEDS: PIPERACILLIN SODIUM/TAZOBACTAM 3.375 G in IV DEXTROSE 5% 100 ML IV SCH ×2 (12:00→20:40)
--- NOTE | 2022-01-30 12:16 | NUR ---
Clinical Social Work Note: SW called [facility] assisted facility ([phone]) and asked the medical records for the patient's primary contact information or next of kin. Medical records state the only contact information they have is for Yodit Ridley ([phone]) who works at a previous residential facility the patient resided. ROXANNE spoke to Yodit Ridley ([phone]) on the phone and she stated she did not have any primary contact or next of kin information for the patient.
[2022-01-30 13:15] LABS: ABG BASE EXCESS -0.5 mmol/L; ABG HCO3 22.6 mmol/L; ABG PCO2 31.5 mmHg (35.0-45.0); ABG PH 7.474 (7.350-7.450); ABG PO2 75.8 mmHg (75.0-100.0); ABG SITE A-Line; ABG TOTAL HEMOGLOBIN 10.2 G/dL (12.0-16.0); COHb 0.3 % (0.5-1.5); O2Hb 94.2 % (94.0-97.0); VENT MODE VENT - A/C; VT, ABG 350 mL
[2022-01-30] MEDS ORDERED: VANCOMYCIN IV 1,000 MG in IV DEXTROSE 5% 250 ML IV ONE (15:00)
[2022-01-30 16:31] LABS: POTASSIUM 3.9 mmol/L (3.5-5.1)
[2022-01-30] MEDS ORDERED: MAGNESIUM SULFATE/D5W 100 ML ONE (19:25)
[2022-01-30] MEDS ORDERED: methylPREDNISolone SOD SUCC 40 MG/ML VIAL ONE (20:04)
[2022-01-30] MEDS: LATANOPROST OPHT DROP 2.5 ML BOTTLE EACHEYE SCH (20:43)
[2022-01-30] MEDS: ATORVASTATIN 40 MG TABLET PO SCH (21:00)
[2022-01-30] MEDS: methylPREDNISolone SOD SUCC 40 MG/ML VIAL IV SCH (21:00)
[2022-01-31] VITALS (24 sets, daily range): BP systolic 108–158; BP diastolic 50–75
[2022-01-31] MEDS: PIPERACILLIN SODIUM/TAZOBACTAM 3.375 G in IV DEXTROSE 5% 100 ML IV SCH ×3 (04:00→20:02)
[2022-01-31] MEDS ORDERED: IV NS 1000 ML 1,000 ML IV ONE (04:45)
--- NOTE | 2022-01-31 05:15 | NUR ---
PT RECEIVED ORALLY INTUBATED WITH A SIZE 7.5 ETT SECURED 23CM @ LIP LINE. VENT SETTINGS OF A/C 10, VT 350, 40% FIO2, 0 PEEP. NO VENT CHANGES MADE DURING SHIFT. SPO2 AND RESPIRATIONS WNL. NO RESP. DISTRESS NOTED. VENT PARAMETERS AND ALARMS CHECKED, ALARMS ARE AUDIBLE. VENT PLUGGED INTO RED OUTLET. ETT REPOSITIONED Q2. ETT/ORAL SXN PRN. WILL CONTINUE TO MONITOR.
[2022-01-31 06:38] LABS: PHOSPHOROUS 2.9 mg/dL (2.5-4.9)
[2022-01-31 06:42] LABS: HEMATOCRIT 25.7 % (31.2-41.9); MEAN CORPUSCULAR HEMOGLOBIN 29.7 uug (24.7-32.8); MEAN CORPUSCULAR VOLUME 91.8 fL (75.5-95.3); PLATELET COUNT (AUTO) 237 K/uL (179-408)
[2022-01-31 06:43] LABS: POTASSIUM 2.8 mmol/L (3.5-5.1)
--- NOTE | 2022-01-31 07:37 | NUR ---
RECEIVED PT ORALLY INTUBATED WITH 7.5 ETT APPROX 23 CM AT THE LIP. CURRENT VENT SETTINGS ARE AC 10, VT 350, FIO2 40%. NO VENT CHANGES MADE AT THIS TIME. ETT IS SECURED VIA ANCHOR FAST. ORAL CARE DONE. ETT REPOSITIONED Q2. HME CHANGED. VENT ALARMS CHECKED, ARE ON AND AUDIBLE. ABG TO BE OBTAINED VIA A-LINE. NO S/S OF RESPIRATORY DISTRESS NOTED AT THIS TIME. VENT IS PLUGGED INTO RED EMERGENCY OUTLET. AMBU BAG IS AT BEDSIDE. WILL CONTINUE TO MONITOR.
[2022-01-31 08:17] LABS: ABG BASE EXCESS -1.6 mmol/L; ABG HCO3 22.5 mmol/L; ABG PCO2 35.8 mmHg (35.0-45.0); ABG PH 7.417 (7.350-7.450); ABG PO2 106.8 mmHg (75.0-100.0); ABG SITE A-Line; ABG TOTAL HEMOGLOBIN 9.4 G/dL (12.0-16.0); COHb 0.3 % (0.5-1.5); MetHb 0.2 % (0.0-1.5); VENT MODE VENT - A/C; VT, ABG 350 mL
[2022-01-31] MEDS ORDERED: POTASSIUM CHLORIDE 50 ML ONE (08:47)
[2022-01-31] MEDS ORDERED: ASPIRIN 81 MG TAB.CHEW ONE (08:50)
[2022-01-31] MEDS ORDERED: FOLIC ACID 1 MG TABLET ONE (08:51)
[2022-01-31] MEDS ORDERED: methylPREDNISolone SOD SUCC 40 MG/ML VIAL ONE ×2 (08:51→21:00)
[2022-01-31] MEDS ORDERED: FAMOTIDINE. 20 MG/2 ML VIAL IV ONE ×2 (08:52→21:00)
[2022-01-31] MEDS ORDERED: GABAPENTIN 100 MG CAPSULE ONE ×3 (08:54→16:25)
[2022-01-31] MEDS ORDERED: QUETIAPINE FUMARATE 25 MG TABLET ONE (08:54)
[2022-01-31] MEDS ORDERED: HEPARIN SODIUM,PORCINE 5,000 UNITS/ML VIAL ONE ×2 (08:54→21:00)
[2022-01-31] MEDS: methylPREDNISolone SOD SUCC 40 MG/ML VIAL IV SCH ×2 (08:56→21:03)
[2022-01-31] MEDS: GABAPENTIN 100 MG CAPSULE PO SCH ×3 (08:56→16:25)
[2022-01-31] MEDS: POTASSIUM CHLORIDE 50 ML IV SCH ×4 (08:56→11:01)
[2022-01-31] MEDS: FAMOTIDINE. 20 MG/2 ML VIAL IV SCH ×2 (08:56→21:02)
[2022-01-31] MEDS: FOLIC ACID 1 MG TABLET PO SCH (08:56)
[2022-01-31] MEDS: ASPIRIN 81 MG TAB.CHEW PO SCH (08:56)
[2022-01-31] MEDS: HEPARIN SODIUM,PORCINE 5,000 UNITS/ML VIAL SQ SCH ×2 (08:57→21:03)
[2022-01-31] MEDS: QUETIAPINE FUMARATE 25 MG TABLET PO SCH (08:57)
[2022-01-31] MEDS: DORZOLAMIDE/TIMOLOL OPHT DROP 10 ML BOTTLE LEFTEYE SCH ×2 (08:59→16:25)
[2022-01-31 09:00] LABS: BILIRUBIN,DIRECT 0.1 mg/dL (0.0-0.2); BILIRUBIN,TOTAL 0.3 mg/dL (0.2-1.0)
[2022-01-31] MEDS: FLUTICASONE/VILANTEROL 1 EACH BLST.W.DEV INH SCH ×2 (09:00→09:01)
[2022-01-31] MEDS: MEMANTINE HCL 10 MG TABLET PO SCH (09:00)
[2022-01-31] MEDS: levETIRAcetam IV 500 MG in IV DEXTROSE 5% 100 ML IV SCH ×2 (09:00→21:05)
[2022-01-31] MEDS ORDERED: POTASSIUM CHLORIDE 50 ML IV SCH ×2 (09:00→17:00)
[2022-01-31] MEDS ORDERED: POTASSIUM CHLORIDE 100 ML ONE (09:35)
[2022-01-31] MEDS ORDERED: GLUCERNA 1.2 1000ML LIQUID GT PRN (15:00)
[2022-01-31] MEDS ORDERED: GLUCERNA 1.2 1000ML LIQUID NG PRN (15:20)
[2022-01-31] MEDS: VANCOMYCIN IV 1,000 MG in IV DEXTROSE 5% 250 ML IV SCH (17:32)
[2022-01-31] MEDS: IV D5/ 0.9% NACL 1,000 ML IV PRN (17:37)
[2022-01-31] MEDS ORDERED: ATORVASTATIN 20 MG TABLET ONE (21:00)
[2022-01-31] MEDS: ATORVASTATIN 40 MG TABLET PO SCH (21:04)
[2022-01-31] MEDS: LATANOPROST OPHT DROP 2.5 ML BOTTLE EACHEYE SCH (21:05)
[2022-02-01] VITALS (13 sets, daily range): BP systolic 116–168; BP diastolic 52–84
[2022-02-01] MEDS: PIPERACILLIN SODIUM/TAZOBACTAM 3.375 G in IV DEXTROSE 5% 100 ML IV SCH ×3 (03:45→20:00)
[2022-02-01 05:14] LABS: HEMATOCRIT 26.1 % (31.2-41.9); MEAN CORPUSCULAR HEMOGLOBIN 29.3 uug (24.7-32.8); MEAN CORPUSCULAR VOLUME 91.6 fL (75.5-95.3); PLATELET COUNT (AUTO) 243 K/uL (179-408)
[2022-02-01 05:18] LABS: PHOSPHOROUS 3.2 mg/dL (2.5-4.9); POTASSIUM 3.6 mmol/L (3.5-5.1)
[2022-02-01] MEDS ORDERED: ASPIRIN 81 MG TAB.CHEW ONE (08:13)
[2022-02-01] MEDS ORDERED: FOLIC ACID 1 MG TABLET ONE (08:14)
[2022-02-01] MEDS ORDERED: methylPREDNISolone SOD SUCC 40 MG/ML VIAL ONE ×2 (08:14→22:12)
[2022-02-01] MEDS ORDERED: HEPARIN SODIUM,PORCINE 5,000 UNITS/ML VIAL ONE ×2 (08:14→22:13)
[2022-02-01] MEDS ORDERED: QUETIAPINE FUMARATE 25 MG TABLET ONE (08:15)
[2022-02-01] MEDS ORDERED: FAMOTIDINE. 20 MG/2 ML VIAL IV ONE ×2 (08:16→22:14)
[2022-02-01] MEDS ORDERED: GABAPENTIN 100 MG CAPSULE ONE ×2 (08:20→13:25)
[2022-02-01] MEDS: FLUTICASONE/VILANTEROL 1 EACH BLST.W.DEV INH SCH (09:00)
[2022-02-01] MEDS: ASPIRIN 81 MG TAB.CHEW PO SCH (09:05)
[2022-02-01] MEDS: methylPREDNISolone SOD SUCC 40 MG/ML VIAL IV SCH ×2 (09:05→21:00)
[2022-02-01] MEDS: FOLIC ACID 1 MG TABLET PO SCH (09:05)
[2022-02-01] MEDS: FAMOTIDINE. 20 MG/2 ML VIAL IV SCH ×2 (09:05→21:00)
[2022-02-01] MEDS: QUETIAPINE FUMARATE 25 MG TABLET PO SCH (09:06)
[2022-02-01] MEDS: GABAPENTIN 100 MG CAPSULE PO SCH ×3 (09:06→17:00)
[2022-02-01] MEDS: MEMANTINE HCL 10 MG TABLET PO SCH (09:06)
[2022-02-01] MEDS: DORZOLAMIDE/TIMOLOL OPHT DROP 10 ML BOTTLE LEFTEYE SCH ×2 (09:11→17:07)
[2022-02-01] MEDS: HEPARIN SODIUM,PORCINE 5,000 UNITS/ML VIAL SQ SCH ×2 (09:13→21:00)
[2022-02-01 09:29] LABS: ABG BASE EXCESS -0.1 mmol/L; ABG HCO3 24.2 mmol/L; ABG PCO2 37.8 mmHg (35.0-45.0); ABG PH 7.424 (7.350-7.450); ABG PO2 91.8 mmHg (75.0-100.0); ABG SITE LEFT RADIAL; ABG TOTAL HEMOGLOBIN 9.7 G/dL (12.0-16.0); COHb 0.3 % (0.5-1.5); MetHb 0.2 % (0.0-1.5); O2Hb 96.3 % (94.0-97.0); VENT MODE VENT - A/C; VT, ABG 350 mL
[2022-02-01] MEDS: levETIRAcetam IV 500 MG in IV DEXTROSE 5% 100 ML IV SCH ×2 (09:45→21:00)
--- NOTE | 2022-02-01 11:00 | NUR ---
turned pt supine.
[2022-02-01] MEDS ORDERED: VANCOMYCIN IV 200 ML ONE (11:01)
[2022-02-01] MEDS: VANCOMYCIN IV 1,000 MG in IV DEXTROSE 5% 250 ML IV SCH (11:41)
[2022-02-01] MEDS ORDERED: NOREPINEPHRINE BITARTRATE 8 MG in IV NORMAL SALINE 242 ML IV PRN (12:15)
--- NOTE | 2022-02-01 14:49 | NUR ---
tape for ng tube came off pt, ng tube pulled part way out. It was determined that, since ng would not readvance back towards stomach, a new ng tube was placed. Position for new ng was determined by w/d a small bit of stomach contents. Call was placed to primary doctor, currently awaiting CB for order to confirm placement via X-ray.
--- NOTE | 2022-02-01 15:05 | NUR ---
turned pt on right
--- NOTE | 2022-02-01 19:02 | NUR ---
Doctor was going to intubate pt due to slow RR, but pt woke up to injection of Narcan, was trying to pull off equipment and get out of bed. Narcan drip started. Pt was sedated with Ketamine. Pt placed on BiPap. Saturations increased from mid 70's to 99% over next hour.
[2022-02-01] MEDS: LATANOPROST OPHT DROP 2.5 ML BOTTLE EACHEYE SCH (21:00)
[2022-02-01] MEDS: ATORVASTATIN 40 MG TABLET PO SCH (21:00)
[2022-02-01] MEDS ORDERED: ATORVASTATIN 20 MG TABLET ONE (22:15)
[2022-02-02] VITALS (22 sets, daily range): BP systolic 138–165; BP diastolic 53–105
[2022-02-02] MEDS: PIPERACILLIN SODIUM/TAZOBACTAM 3.375 G in IV DEXTROSE 5% 100 ML IV SCH ×3 (04:00→20:00)
[2022-02-02] MEDS: VANCOMYCIN IV 1,000 MG in IV DEXTROSE 5% 250 ML IV SCH ×2 (05:00→23:16)
[2022-02-02 05:04] LABS: MEAN CORPUSCULAR HEMOGLOBIN 29.4 uug (24.7-32.8); MEAN CORPUSCULAR VOLUME 92.1 fL (75.5-95.3); PLATELET COUNT (AUTO) 196 K/uL (179-408)
[2022-02-02 05:21] LABS: BILIRUBIN,TOTAL 0.2 mg/dL (0.2-1.0); CREATININE 0.6 mg/dL (0.6-1.3); PHOSPHOROUS 2.4 mg/dL (2.5-4.9); TOTAL PROTEIN, SERUM 3.4 g/dL (6.4-8.2)
[2022-02-02 05:47] LABS: MAGNESIUM 1.2 mg/dL (1.8-2.4); POTASSIUM 2.3 mmol/L (3.5-5.1)
[2022-02-02 07:07] LABS: IRON, SERUM 52 ug/dL (50-175)
[2022-02-02 07:22] LABS: FERRITIN 268 ng/mL (8-252)
--- NOTE | 2022-02-02 07:30 | NUR ---
Received pt. from [facility]. On ventilator ETT 7.5 A/C 10 Tv350, and 30% FIo2, saturation of 97%. No resp. distress noted. Chest tube Bilateral to to 20cm leaking noted and as informed it is been leaking air bilaterally. at 0800 company pilot in the unit and aware of findings. NG -T with feeding running at 30ml/hr. mejia to gravity. Patient on cardiac monitoring NSR sbp with arterial line not reading, Line zeroed and readings of 150-160's. Neuro-stein pt. tracking and opening eyes to verbal command and to name. Mejia to gravity will continue with care plan.
[2022-02-02] MEDS: POTASSIUM CHLORIDE 50 ML IV SCH ×6 (08:00→13:45)
[2022-02-02] MEDS ORDERED: ALBUMIN HUMAN 25% 50 ML IV ONE (08:00)
--- NOTE | 2022-02-02 08:30 | NUR ---
Patient seen by liberal arts teacher Dr. Momin, report given orders received and implemented.
--- NOTE | 2022-02-02 08:39 | NUR ---
Patient seen by pulping machine operator Dr.l Ureña report given see order hx.
[2022-02-02] MEDS ORDERED: ALBUMIN HUMAN 25% 50 ML ONE (08:46)
[2022-02-02] MEDS ORDERED: POTASSIUM CHLORIDE 200 ML ONE (08:46)
[2022-02-02] MEDS ORDERED: MAGNESIUM SULFATE/D5W 200 ML ONE ×2 (08:47→11:51)
[2022-02-02] MEDS ORDERED: ASPIRIN 81 MG TAB.CHEW ONE (08:48)
[2022-02-02] MEDS ORDERED: FAMOTIDINE. 20 MG/2 ML VIAL IV ONE ×2 (08:49→21:28)
[2022-02-02] MEDS ORDERED: FOLIC ACID 1 MG TABLET ONE (08:49)
[2022-02-02] MEDS ORDERED: methylPREDNISolone SOD SUCC 40 MG/ML VIAL ONE ×2 (08:49→21:27)
[2022-02-02] MEDS ORDERED: CALCIUM GLUCONATE IV 1 GM in IV NORMAL SALINE 100 ML IV ONE (09:00)
[2022-02-02] MEDS: GABAPENTIN 100 MG CAPSULE PO SCH ×3 (09:00→17:18)
[2022-02-02] MEDS: FLUTICASONE/VILANTEROL 1 EACH BLST.W.DEV INH SCH (09:00)
[2022-02-02] MEDS: levETIRAcetam IV 500 MG in IV DEXTROSE 5% 100 ML IV SCH (09:13)
[2022-02-02 09:15] LABS: HEMATOCRIT 26.8 % (31.2-41.9); MEAN CORPUSCULAR HEMOGLOBIN 29.8 uug (24.7-32.8); MEAN CORPUSCULAR VOLUME 92.2 fL (75.5-95.3); PLATELET COUNT (AUTO) 260 K/uL (179-408)
[2022-02-02 09:17] LABS: CREATININE 0.9 mg/dL (0.6-1.3); POTASSIUM 3.3 mmol/L (3.5-5.1)
[2022-02-02] MEDS: MAGNESIUM SULFATE/D5W 100 ML IV SCH ×4 (09:26→13:46)
[2022-02-02] MEDS: FAMOTIDINE. 20 MG/2 ML VIAL IV SCH (09:26)
[2022-02-02] MEDS: ASPIRIN 81 MG TAB.CHEW PO SCH (09:27)
[2022-02-02] MEDS: MEMANTINE HCL 10 MG TABLET PO SCH (09:27)
[2022-02-02] MEDS: DORZOLAMIDE/TIMOLOL OPHT DROP 10 ML BOTTLE LEFTEYE SCH ×2 (09:27→17:17)
[2022-02-02] MEDS: methylPREDNISolone SOD SUCC 40 MG/ML VIAL IV SCH ×2 (09:27→21:00)
[2022-02-02] MEDS: FOLIC ACID 1 MG TABLET PO SCH (09:27)
[2022-02-02 09:28] LABS: BILIRUBIN,TOTAL 0.3 mg/dL (0.2-1.0); MAGNESIUM 1.6 mg/dL (1.8-2.4)
[2022-02-02 09:36] LABS: ABG BASE EXCESS 0.3 mmol/L; ABG HCO3 24.5 mmol/L; ABG PCO2 37.6 mmHg (35.0-45.0); ABG PH 7.432 (7.350-7.450); ABG PO2 75.6 mmHg (75.0-100.0); ABG SITE LEFT RADIAL; ABG TOTAL HEMOGLOBIN 9.6 G/dL (12.0-16.0); COHb 0.3 % (0.5-1.5); MetHb 0.6 % (0.0-1.5); O2Hb 93.9 % (94.0-97.0); VENT MODE VENT - A/C; VT, ABG 350 mL
[2022-02-02] MEDS: MORPHINE SULFATE 2 MG/1 ML DISP.SYRIN IV PRN (10:00)
[2022-02-02] MEDS ORDERED: MORPHINE SULFATE 2 MG/1 ML DISP.SYRIN ONE (10:01)
--- NOTE | 2022-02-02 12:06 | NUR ---
Attending physician Dr. Sarkis Liz in the unit to see and examine pt. report given orders to continue with care plan received. Addendum: 02/02/22 at 1644 by ANUM JAIMES RN Orders for metoprolol 25mg Q12 received
[2022-02-02] MEDS ORDERED: GABAPENTIN 100 MG CAPSULE ONE ×2 (15:52→17:17)
[2022-02-02] MEDS ORDERED: NEUTRA PHOS PACKET GT ONE (16:00)
[2022-02-02] MEDS ORDERED: METOPROLOL TARTRATE 5 MG/5 ML VIAL IVP PRN (16:45)
[2022-02-02] MEDS ORDERED: METOPROLOL TARTRATE 25 MG TABLET PO ONE (18:00)
[2022-02-02] MEDS: IV D5/ 0.9% NACL 1,000 ML IV PRN (18:09)
[2022-02-02] MEDS: FAMOTIDINE 20 MG TABLET NG SCH (21:00)
[2022-02-02] MEDS: levETIRAcetam 500 MG/5 ML LIQUID UDC NG SCH (21:00)
[2022-02-02] MEDS: ATORVASTATIN 40 MG TABLET PO SCH (21:00)
[2022-02-02] MEDS ORDERED: ATORVASTATIN 20 MG TABLET ONE (21:27)
[2022-02-02] MEDS: LATANOPROST OPHT DROP 2.5 ML BOTTLE EACHEYE SCH (21:56)
[2022-02-03] VITALS (23 sets, daily range): BP systolic 130–160; BP diastolic 56–90
[2022-02-03] MEDS: PIPERACILLIN SODIUM/TAZOBACTAM 3.375 G in IV DEXTROSE 5% 100 ML IV SCH ×3 (04:00→20:48)
[2022-02-03 05:14] LABS: HEMATOCRIT 27.2 % (31.2-41.9); MEAN CORPUSCULAR HEMOGLOBIN 30.2 uug (24.7-32.8); MEAN CORPUSCULAR VOLUME 92.3 fL (75.5-95.3); PLATELET COUNT (AUTO) 242 K/uL (179-408)
[2022-02-03 05:25] LABS: CREATININE 0.7 mg/dL (0.6-1.3); MAGNESIUM 2.4 mg/dL (1.8-2.4); PHOSPHOROUS 4.5 mg/dL (2.5-4.9); POTASSIUM 3.6 mmol/L (3.5-5.1)
--- NOTE | 2022-02-03 07:15 | NUR ---
Received pt. On ventilator remains on A/C10, tv 350 and 30% FIO2. saturation within desire limits. Hemodynamically stable rate in the 70's 80's. TLC patent. Chest tubes bilateral left side with no leaking noted. Right chest tube with slight leaking noted. claims associate in the unit and aware. mejia to gravity. NG-t to feeding with zero residuals.
--- NOTE | 2022-02-03 08:00 | NUR ---
Pulmonary services Dr. Ureña int he unit to see and examine pt. report given. Orders to continue with care plan received.
[2022-02-03] MEDS ORDERED: methylPREDNISolone SOD SUCC 40 MG/ML VIAL ONE ×2 (08:12→20:13)
[2022-02-03] MEDS ORDERED: POTASSIUM CHLORIDE 20 MEQ POWDER PACKET ONE (08:12)
[2022-02-03] MEDS ORDERED: METOPROLOL SUCCINATE XL 25 MG TAB.SR.24H PO ONE (08:12)
[2022-02-03] MEDS ORDERED: ASPIRIN 81 MG TAB.CHEW ONE (08:12)
[2022-02-03] MEDS ORDERED: FAMOTIDINE 20 MG TABLET ONE ×2 (08:12→20:13)
[2022-02-03] MEDS ORDERED: GABAPENTIN 100 MG CAPSULE ONE ×3 (08:13→16:18)
[2022-02-03] MEDS: DORZOLAMIDE/TIMOLOL OPHT DROP 10 ML BOTTLE LEFTEYE SCH ×2 (08:24→16:17)
[2022-02-03] MEDS: methylPREDNISolone SOD SUCC 40 MG/ML VIAL IV SCH ×2 (08:24→20:24)
[2022-02-03] MEDS: ASPIRIN 81 MG TAB.CHEW PO SCH (08:27)
[2022-02-03] MEDS: FAMOTIDINE 20 MG TABLET NG SCH ×2 (08:27→20:25)
[2022-02-03] MEDS: METOPROLOL TARTRATE 25 MG TABLET PO SCH ×2 (08:27→20:27)
[2022-02-03] MEDS: GABAPENTIN 100 MG CAPSULE PO SCH ×3 (08:28→16:20)
[2022-02-03] MEDS: FOLIC ACID 1 MG TABLET PO SCH (08:28)
--- NOTE | 2022-02-03 08:30 | NUR ---
Cardiology services, Dr. Momin in the unit to see and examine pt.
[2022-02-03 08:39] LABS: ABG HCO3 22.7 mmol/L; ABG PCO2 34.3 mmHg (35.0-45.0); ABG PH 7.439 (7.350-7.450); ABG PO2 72.1 mmHg (75.0-100.0); ABG SITE A-Line; COHb 0.3 % (0.5-1.5); MetHb 0.3 % (0.0-1.5); VENT MODE VENT - A/C; VT, ABG 350 mL
[2022-02-03] MEDS: FLUTICASONE/VILANTEROL 1 EACH BLST.W.DEV INH SCH (08:59)
[2022-02-03] MEDS: MEMANTINE HCL 10 MG TABLET PO SCH (09:00)
[2022-02-03] MEDS ORDERED: POTASSIUM CHLORIDE 20 MEQ POWDER PACKET NG ONE (09:00)
[2022-02-03] MEDS: LOSARTAN POTASSIUM 50 MG TABLET NG SCH (09:00)
[2022-02-03] MEDS: levETIRAcetam 500 MG/5 ML LIQUID UDC NG SCH ×2 (09:01→21:13)
[2022-02-03] MEDS ORDERED: HEPARIN SODIUM,PORCINE 5,000 UNITS/ML VIAL ONE ×2 (09:03→20:13)
[2022-02-03] MEDS: HEPARIN SODIUM,PORCINE 5,000 UNITS/ML VIAL SQ SCH ×2 (09:04→20:28)
--- NOTE | 2022-02-03 11:00 | NUR ---
Attending Pooja Howell in the unit to see and examine pt. report given orders to continue with care received.
--- NOTE | 2022-02-03 11:34 | NUR ---
WOUND CARE CONSULT: PT PRESENTS WITH GENERALIZED EDEMA, SKIN TEAR TO RT ARM AND RASH TO GROIN FOLDS AND PERINEUM. RECOMMENDATIONS MADE FOR SKIN PROTECTION. DISCUSSED WITH NURSING STAFF. FIRST STEP LOW AIRLOSS MATTRESS ORDERED. PT NOTED TO HAVE YODER CATH AND CHEST TUBES. PT IS INCONTINENT OF STOOL. MD IN AGREEMENT WITH PLAN OF CARE.
[2022-02-03] MEDS ORDERED: REMEDY ESSENTIAL ZINC PASTE 113 GM TOP PRN (11:45)
[2022-02-03] MEDS: REMEDY ESSENTIAL ZINC PASTE 113 GM TOP SCH ×2 (11:51→20:27)
[2022-02-03] MEDS: CLOTRIMAZOLE 1% CREAM 30 GM TUBE TOP SCH ×2 (12:00→16:20)
[2022-02-03] MEDS: IV D5/ 0.9% NACL 1,000 ML IV PRN (14:14)
[2022-02-03] MEDS ORDERED: MORPHINE SULFATE 2 MG/1 ML DISP.SYRIN ONE (20:14)
[2022-02-03] MEDS: ATORVASTATIN 40 MG TABLET PO SCH (20:27)
[2022-02-03] MEDS: MORPHINE SULFATE 2 MG/1 ML DISP.SYRIN IV PRN (20:28)
[2022-02-03] MEDS: LATANOPROST OPHT DROP 2.5 ML BOTTLE EACHEYE SCH (20:29)
[2022-02-03] MEDS: VANCOMYCIN IV 1,000 MG in IV DEXTROSE 5% 250 ML IV SCH (20:44)
[2022-02-03] MEDS ORDERED: levETIRAcetam 500 MG/5 ML LIQUID UDC ONE (21:13)
[2022-02-04] VITALS (24 sets, daily range): BP systolic 111–180; BP diastolic 55–88
--- NOTE | 2022-02-04 03:56 | NUR ---
PATIENT ON CONT LUNA VENT WITH 7.5 ET/TUBE IN PLACE AND SECURED WITH ANCHOR FAST, ROTATE Q2 HOURS, SUCTION MOUTH WITH YANKAUER, SUCTIONED VERY LIGHT PALE YELL TINGE SECRETIONS, NO VENT CHANGES MADE, VENT SETTINGS CURRENT , A/C 10, VT 350ML, FIO2 @ 30%, PEEP 5, ALL VENT ALARMS GOOD, VENT PLUGGED INTO RED WALL OUT, ABG BEFORE 07:00, SAT 94% APPROX. D CRUZITO PANEL BEATER
[2022-02-04] MEDS: PIPERACILLIN SODIUM/TAZOBACTAM 3.375 G in IV DEXTROSE 5% 100 ML IV SCH ×3 (04:49→20:22)
[2022-02-04 05:04] LABS: HEMATOCRIT 26.1 % (31.2-41.9); MEAN CORPUSCULAR HEMOGLOBIN 29.6 uug (24.7-32.8); MEAN CORPUSCULAR VOLUME 91.1 fL (75.5-95.3); PLATELET COUNT (AUTO) 269 K/uL (179-408)
[2022-02-04 05:17] LABS: CREATININE 0.7 mg/dL (0.6-1.3); MAGNESIUM 1.7 mg/dL (1.8-2.4); PHOSPHOROUS 3.9 mg/dL (2.5-4.9); POTASSIUM 3.6 mmol/L (3.5-5.1)
[2022-02-04 06:11] LABS: ABG HCO3 26.2 mmol/L; ABG PCO2 34.6 mmHg (35.0-45.0); ABG PH 7.497 (7.350-7.450); ABG PO2 80.7 mmHg (75.0-100.0); ABG SITE RIGHT RADIAL; ABG TOTAL HEMOGLOBIN 9.5 G/dL (12.0-16.0); COHb 0.2 % (0.5-1.5); MetHb 0.3 % (0.0-1.5); O2Hb 95.2 % (94.0-97.0); VENT MODE VENT - A/C; VT, ABG 350 mL
--- NOTE | 2022-02-04 06:13 | NUR ---
CORRECTION, PT HAS NO PEEP , ABG DONE, REPORTED TO ANUM Dia Addendum: 02/04/22 at 0613 by LISBETH PIZARRO Amended: Links added.
--- NOTE | 2022-02-04 06:36 | NUR ---
Report will be given to incoming R.N. remains on ventilator, A/C 10, Tv35, FIO2 30% saturation of 93-93%. ETT 7.5, 23LL. chest tubes bilateral left with no air leak noted right chest with airleak. NG -T with feeding to be resumed. pt. tolerating it well mejia to gravity. Hemodynamically patient stable.
[2022-02-04] MEDS: FLUTICASONE/VILANTEROL 1 EACH BLST.W.DEV INH SCH (07:28)
[2022-02-04] MEDS ORDERED: POTASSIUM CHLORIDE 20 MEQ POWDER PACKET GT ONE (07:45)
[2022-02-04] MEDS ORDERED: FAMOTIDINE 20 MG TABLET ONE ×2 (08:12→21:52)
[2022-02-04] MEDS ORDERED: levETIRAcetam 500 MG/5 ML LIQUID UDC ONE ×2 (08:12→21:52)
[2022-02-04] MEDS ORDERED: FOLIC ACID 1 MG TABLET ONE (08:12)
[2022-02-04] MEDS ORDERED: ASPIRIN 81 MG TAB.CHEW ONE (08:12)
[2022-02-04] MEDS ORDERED: GABAPENTIN 100 MG CAPSULE ONE ×3 (08:13→17:32)
[2022-02-04] MEDS ORDERED: POTASSIUM CHLORIDE 20 MEQ POWDER PACKET ONE (08:13)
[2022-02-04] MEDS ORDERED: METOPROLOL TARTRATE 50 MG TABLET ONE ×2 (08:13→21:53)
[2022-02-04] MEDS ORDERED: methylPREDNISolone SOD SUCC 40 MG/ML VIAL ONE ×2 (08:13→21:52)
[2022-02-04] MEDS ORDERED: MAGNESIUM SULFATE/D5W 200 ML ONE (08:13)
[2022-02-04] MEDS ORDERED: HEPARIN SODIUM,PORCINE 5,000 UNITS/ML VIAL ONE ×2 (08:14→21:53)
[2022-02-04] MEDS: ASPIRIN 81 MG TAB.CHEW PO SCH (08:20)
[2022-02-04] MEDS: MAGNESIUM SULFATE/D5W 100 ML IV SCH ×2 (08:20→09:15)
[2022-02-04] MEDS: FOLIC ACID 1 MG TABLET PO SCH (08:21)
[2022-02-04] MEDS: METOPROLOL TARTRATE 25 MG TABLET PO SCH ×2 (08:21→22:00)
[2022-02-04] MEDS: GABAPENTIN 100 MG CAPSULE PO SCH ×3 (08:21→17:33)
[2022-02-04] MEDS: levETIRAcetam 500 MG/5 ML LIQUID UDC NG SCH ×2 (08:22→21:56)
[2022-02-04] MEDS: methylPREDNISolone SOD SUCC 40 MG/ML VIAL IV SCH ×2 (08:22→21:55)
[2022-02-04] MEDS: FAMOTIDINE 20 MG TABLET NG SCH ×2 (08:23→21:54)
[2022-02-04] MEDS: MEMANTINE HCL 10 MG TABLET PO SCH (08:23)
[2022-02-04] MEDS: LOSARTAN POTASSIUM 50 MG TABLET NG SCH (08:23)
[2022-02-04] MEDS: DORZOLAMIDE/TIMOLOL OPHT DROP 10 ML BOTTLE LEFTEYE SCH ×2 (08:24→17:31)
[2022-02-04] MEDS: HEPARIN SODIUM,PORCINE 5,000 UNITS/ML VIAL SQ SCH ×2 (08:25→21:57)
[2022-02-04] MEDS: REMEDY ESSENTIAL ZINC PASTE 113 GM TOP SCH ×2 (08:28→21:56)
[2022-02-04] MEDS: CLOTRIMAZOLE 1% CREAM 30 GM TUBE TOP SCH ×2 (08:28→17:31)
[2022-02-04] MEDS: IV D5/ 0.9% NACL 1,000 ML IV PRN (11:55)
[2022-02-04] MEDS: VANCOMYCIN IV 1,000 MG in IV DEXTROSE 5% 250 ML IV SCH (17:31)
--- NOTE | 2022-02-04 17:59 | NUR ---
per dietary recommendations feeding needs to increase to goal rate of 70 ml/hr. patient continues to have more diarrhea while feeding. informed Guzman WATERPROOF COATING MACHINE TENDER for further orders or any formula changes. In addition informed that patient did vomit small amount yellow curd.
[2022-02-04] MEDS ORDERED: ATORVASTATIN 20 MG TABLET ONE (21:53)
[2022-02-04] MEDS: ATORVASTATIN 40 MG TABLET PO SCH (21:58)
[2022-02-04] MEDS: LATANOPROST OPHT DROP 2.5 ML BOTTLE EACHEYE SCH (22:02)
[2022-02-05] VITALS (23 sets, daily range): BP systolic 102–164; BP diastolic 52–89
[2022-02-05] MEDS ORDERED: MORPHINE SULFATE 2 MG/1 ML DISP.SYRIN ONE ×3 (01:37→17:50)
[2022-02-05] MEDS: MORPHINE SULFATE 2 MG/1 ML DISP.SYRIN IV PRN ×3 (01:41→17:51)
[2022-02-05] MEDS: IV D5/ 0.9% NACL 1,000 ML IV PRN (04:31)
[2022-02-05] MEDS: PIPERACILLIN SODIUM/TAZOBACTAM 3.375 G in IV DEXTROSE 5% 100 ML IV SCH ×3 (04:31→20:00)
[2022-02-05 04:37] LABS: MEAN CORPUSCULAR HEMOGLOBIN 30.5 uug (24.7-32.8); MEAN CORPUSCULAR VOLUME 93.1 fL (75.5-95.3); PLATELET COUNT (AUTO) 329 K/uL (179-408)
[2022-02-05 04:49] LABS: CREATININE 0.7 mg/dL (0.6-1.3); MAGNESIUM 1.9 mg/dL (1.8-2.4); PHOSPHOROUS 3.8 mg/dL (2.5-4.9); POTASSIUM 3.9 mmol/L (3.5-5.1)
[2022-02-05 06:12] LABS: ABG BASE EXCESS 2.8 mmol/L; ABG HCO3 26.6 mmol/L; ABG PCO2 37.6 mmHg (35.0-45.0); ABG PH 7.467 (7.350-7.450); ABG PO2 69.5 mmHg (75.0-100.0); ABG SITE RIGHT RADIAL; ABG TOTAL HEMOGLOBIN 9.7 G/dL (12.0-16.0); COHb 0.5 % (0.5-1.5); O2Hb 92.9 % (94.0-97.0); VENT MODE VENT - A/C; VT, ABG 350 mL
--- NOTE | 2022-02-05 06:21 | NUR ---
Pt on vent A/C 10, TV: 350, FI02: 30%., tolerating well sating at 94-98%. NG tube in place, feeding to be resumed at 0800H, 10cc of residual this morning. Oral care done. Remains SR on monitor. Left chest tube intact with no leak noted, no drainage for this shift. Right chest tube noted with leak, 80cc of drainage for this shift. Barrera intact draining to gravity. Rectal tube in place. Brooke care provided to patient. Right femoral central cath intact and running ordered fluids and medications. Turned and repositioned for comfort. Will endorse to day shift.
[2022-02-05] MEDS: MEMANTINE HCL 10 MG TABLET PO SCH (08:34)
[2022-02-05] MEDS: LOSARTAN POTASSIUM 50 MG TABLET NG SCH (08:35)
[2022-02-05] MEDS: METOPROLOL TARTRATE 25 MG TABLET PO SCH ×2 (08:35→21:37)
[2022-02-05] MEDS: FLUTICASONE/VILANTEROL 1 EACH BLST.W.DEV INH SCH (08:35)
[2022-02-05] MEDS: REMEDY ESSENTIAL ZINC PASTE 113 GM TOP SCH ×2 (08:37→21:00)
[2022-02-05] MEDS: DORZOLAMIDE/TIMOLOL OPHT DROP 10 ML BOTTLE LEFTEYE SCH ×2 (08:38→17:04)
[2022-02-05] MEDS: CLOTRIMAZOLE 1% CREAM 30 GM TUBE TOP SCH ×2 (08:39→17:04)
[2022-02-05] MEDS ORDERED: FOLIC ACID 1 MG TABLET ONE (08:45)
[2022-02-05] MEDS ORDERED: ASPIRIN 81 MG TAB.CHEW ONE (08:45)
[2022-02-05] MEDS ORDERED: levETIRAcetam 500 MG/5 ML LIQUID UDC ONE (08:45)
[2022-02-05] MEDS ORDERED: FAMOTIDINE 20 MG TABLET ONE (08:45)
[2022-02-05] MEDS ORDERED: HEPARIN SODIUM,PORCINE 5,000 UNITS/ML VIAL ONE ×2 (08:46→21:30)
[2022-02-05] MEDS ORDERED: methylPREDNISolone SOD SUCC 40 MG/ML VIAL ONE (08:46)
[2022-02-05] MEDS ORDERED: GABAPENTIN 100 MG CAPSULE ONE ×2 (08:46→17:09)
[2022-02-05] MEDS: FAMOTIDINE 20 MG TABLET NG SCH ×2 (08:49→21:35)
[2022-02-05] MEDS: ASPIRIN 81 MG TAB.CHEW PO SCH (08:49)
[2022-02-05] MEDS: levETIRAcetam 500 MG/5 ML LIQUID UDC NG SCH ×2 (08:49→21:35)
[2022-02-05] MEDS: FOLIC ACID 1 MG TABLET PO SCH (08:49)
[2022-02-05] MEDS: methylPREDNISolone SOD SUCC 40 MG/ML VIAL IV SCH (08:49)
[2022-02-05] MEDS: GABAPENTIN 100 MG CAPSULE PO SCH ×3 (08:49→17:09)
[2022-02-05] MEDS: HEPARIN SODIUM,PORCINE 5,000 UNITS/ML VIAL SQ SCH ×2 (09:09→21:48)
[2022-02-05] MEDS ORDERED: ACETAMINOPHEN 650 MG/20.3 ML LIQUID UDC ONE (10:34)
[2022-02-05] MEDS: VANCOMYCIN IV 1,000 MG in IV DEXTROSE 5% 250 ML IV SCH (13:07)
--- NOTE | 2022-02-05 18:29 | NUR ---
0730am: Nursing SBAR received from medical records administrator RN Bria. Patient is still in our ER department as an ICU/CCU HOLD in ER "transition unit" secondary to no staffing available in ICU/CCU. I am an ER nurse covering while an ICU/CCU nurse becomes available per medical records administrator nursing fertilizer supervisor Maxime Rogel. Patient is awake, both eyes are open but not tracking, ETT to ventilator with parameters+AC rate=10/min, FiO2=30%, PEEP=0, JE=979, IV fluids infusing thru the R groin CVC triple lumen line, skin cool, dry with crepitus all over (face,neck,chest, shoulders, arms, abdomen, legs). 0841am: Dr Ureña is here. 0851am: Dr Momin is here. 1225pm: no acute change seen, left neck subQ emphysema is slightly bigger, ETT to ventilator maintained 1701pm: Dr Mendez is here. 1827pm: Dr Morgan notified re: latest hgb & hct and platelet count with orders. IV site dressing changed 3x. Patient was reminded to keep her R arm straight@all times. Lab staff Rob notified re: need for units of platelet for transfusion. Addendum: 02/05/22 at 1836 by JIM RYAN RN Please delete 256 notes. It is for another patient.
--- NOTE | 2022-02-05 18:31 | NUR ---
0730am: Nursing SBAR received from shift boss RN Bria. Patient is still in our ER department as an ICU/CCU HOLD in ER "transition unit" secondary to no staffing available in ICU/CCU. I am an ER nurse covering while an ICU/CCU nurse becomes available per shift boss nursing blending supervisor Maxime Rogel. Patient is awake, both eyes are open but not tracking, ETT to ventilator with parameters+AC rate=10/min, FiO2=30%, PEEP=0, VK=958, IV fluids infusing thru the R groin CVC triple lumen line, skin cool, dry with crepitus all over (face,neck,chest, shoulders, arms, abdomen, legs). 0841am: Dr Ureña is here. 0851am: Dr Momin is here. 1225pm: Left neck subQ emphysema is slightly bigger, ETT to ventilator maintained 1701pm: Dr Mendez is here. 1831pm: increasing subQ emphysema seen to neck and face,all MDs are aware. Position changes are done. Patient was monitored closely.
[2022-02-05] MEDS: LATANOPROST OPHT DROP 2.5 ML BOTTLE EACHEYE SCH (21:22)
[2022-02-05] MEDS ORDERED: FAMOTIDINE. 20 MG/2 ML VIAL IV ONE (21:31)
[2022-02-05] MEDS ORDERED: levETIRAcetam 500 MG/5 ML VIAL IV ONE (21:33)
[2022-02-05] MEDS: ATORVASTATIN 40 MG TABLET PO SCH (21:36)
--- NOTE | 2022-02-05 23:00 | NUR ---
Call to DR. Oliveira, need to report blood pressure status. He return the call and them hang up before I could get back to the phone. I then placed another call to which he never call back.
[2022-02-06] VITALS (22 sets, daily range): BP systolic 120–180; BP diastolic 66–94
[2022-02-06] MEDS: PIPERACILLIN SODIUM/TAZOBACTAM 3.375 G in IV DEXTROSE 5% 100 ML IV SCH ×2 (04:00→21:00)
[2022-02-06 05:10] LABS: HEMATOCRIT 27.8 % (31.2-41.9); MEAN CORPUSCULAR VOLUME 92.7 fL (75.5-95.3); PLATELET COUNT (AUTO) 350 K/uL (179-408)
[2022-02-06 05:19] LABS: CREATININE 0.7 mg/dL (0.6-1.3); MAGNESIUM 1.7 mg/dL (1.8-2.4); PHOSPHOROUS 3.5 mg/dL (2.5-4.9); POTASSIUM 3.4 mmol/L (3.5-5.1)
[2022-02-06 06:10] LABS: ABG BASE EXCESS 2.9 mmol/L; ABG HCO3 26.8 mmol/L; ABG PCO2 38.5 mmHg (35.0-45.0); ABG PH 7.461 (7.350-7.450); ABG PO2 75.5 mmHg (75.0-100.0); ABG SITE RIGHT RADIAL; ABG TOTAL HEMOGLOBIN 10.2 G/dL (12.0-16.0); COHb 0.1 % (0.5-1.5); MetHb 0.3 % (0.0-1.5); O2Hb 94.5 % (94.0-97.0); VENT MODE VENT - A/C; VT, ABG 350 mL
[2022-02-06] MEDS ORDERED: POTASSIUM CHLORIDE 20 MEQ POWDER PACKET NG ONE (07:45)
[2022-02-06] MEDS: MAGNESIUM SULFATE/D5W 100 ML IV SCH ×2 (07:45→08:45)
[2022-02-06] MEDS ORDERED: MAGNESIUM SULFATE/D5W 100 ML ONE ×2 (08:41→09:50)
[2022-02-06] MEDS ORDERED: GABAPENTIN 100 MG CAPSULE ONE ×3 (10:50→17:26)
[2022-02-06] MEDS ORDERED: FAMOTIDINE 20 MG TABLET ONE (10:50)
[2022-02-06] MEDS ORDERED: levETIRAcetam 500 MG/5 ML LIQUID UDC ONE (10:50)
[2022-02-06] MEDS ORDERED: FOLIC ACID 1 MG TABLET ONE (10:50)
[2022-02-06] MEDS ORDERED: ASPIRIN 81 MG TAB.CHEW ONE (10:50)
[2022-02-06] MEDS ORDERED: POTASSIUM CHLORIDE 20 MEQ POWDER PACKET ONE (10:51)
[2022-02-06] MEDS ORDERED: METOPROLOL TARTRATE 50 MG TABLET ONE ×2 (10:51→20:59)
[2022-02-06] MEDS ORDERED: methylPREDNISolone SOD SUCC 40 MG/ML VIAL ONE (10:51)
[2022-02-06] MEDS ORDERED: HEPARIN SODIUM,PORCINE 5,000 UNITS/ML VIAL ONE ×2 (10:51→20:59)
[2022-02-06] MEDS: levETIRAcetam 500 MG/5 ML LIQUID UDC NG SCH ×2 (10:53→21:41)
[2022-02-06] MEDS: methylPREDNISolone SOD SUCC 40 MG/ML VIAL IV SCH (10:53)
[2022-02-06] MEDS: ASPIRIN 81 MG TAB.CHEW PO SCH (10:53)
[2022-02-06] MEDS: FOLIC ACID 1 MG TABLET PO SCH (10:54)
[2022-02-06] MEDS: FAMOTIDINE 20 MG TABLET NG SCH ×2 (10:54→21:41)
[2022-02-06] MEDS: GABAPENTIN 100 MG CAPSULE PO SCH ×3 (10:54→17:26)
[2022-02-06] MEDS: METOPROLOL TARTRATE 25 MG TABLET PO SCH ×2 (10:55→21:41)
[2022-02-06] MEDS: CLOTRIMAZOLE 1% CREAM 30 GM TUBE TOP SCH ×2 (10:56→17:26)
[2022-02-06] MEDS: DORZOLAMIDE/TIMOLOL OPHT DROP 10 ML BOTTLE LEFTEYE SCH ×2 (10:56→17:26)
[2022-02-06] MEDS: FLUTICASONE/VILANTEROL 1 EACH BLST.W.DEV INH SCH (10:56)
[2022-02-06] MEDS: REMEDY ESSENTIAL ZINC PASTE 113 GM TOP SCH ×2 (10:57→21:47)
[2022-02-06] MEDS: HEPARIN SODIUM,PORCINE 5,000 UNITS/ML VIAL SQ SCH ×2 (11:10→21:46)
[2022-02-06] MEDS: LOSARTAN POTASSIUM 50 MG TABLET NG SCH (11:37)
[2022-02-06] MEDS: MEMANTINE HCL 10 MG TABLET PO SCH (11:37)
--- NOTE | 2022-02-06 12:12 | NUR ---
Per Rox Graham, bioethics committee will be contacted and plan for PEG and trach in place.
--- NOTE | 2022-02-06 14:12 | NUR ---
Per Rox Graham, sister of patient consented to PEG and trach insertion. Patient will have PEG placement done tomorrow by Dr. Carney. Patient to be NPO after midnight.
--- NOTE | 2022-02-06 14:31 | NUR ---
Perineal care rendered.
[2022-02-06] MEDS ORDERED: VANCOMYCIN IV 1,000 MG in IV DEXTROSE 5% 250 ML IV SCH (16:00)
--- NOTE | 2022-02-06 17:00 | NUR ---
Pt remains intubated on CMV, no vent changes made today. Spo2 and respirations wnl, no resp. distress noted throughout shift. Ett repositioned Q2. Ett/oral sxn prn, oral care done, suction recinos and hme changed. Bvm at bedside, vent plugged into red outlet. Will continue to monitor.
[2022-02-06] MEDS ORDERED: levETIRAcetam 500 MG/5 ML VIAL IV ONE (20:59)
[2022-02-06] MEDS ORDERED: FAMOTIDINE. 20 MG/2 ML VIAL IV ONE (21:00)
[2022-02-06] MEDS ORDERED: ATORVASTATIN 20 MG TABLET ONE (21:00)
[2022-02-06] MEDS: LATANOPROST OPHT DROP 2.5 ML BOTTLE EACHEYE SCH (21:40)
[2022-02-06] MEDS: ATORVASTATIN 40 MG TABLET PO SCH (21:41)
[2022-02-07] VITALS (19 sets, daily range): BP systolic 119–153; BP diastolic 63–99
[2022-02-07] MEDS: IV D5/ 0.9% NACL 1,000 ML IV PRN ×2 (00:13→21:43)
--- NOTE | 2022-02-07 00:20 | NUR ---
Note daron in EDM - 02/07/22 at 0142 by [email or web address] First contact. Pt lying in stretcher. Resp even and unlabored. Pt c/o shortness of breath. Pt connected to monitor.
--- NOTE | 2022-02-07 02:47 | NUR ---
PATIENT REMAINS ON LUNA VENT WITH ET/TUBE IN PLACE WITH ANCHOR FAST, ROTATE Q2 HOURS, SUCTION PRN, ORAL CARE, PT SEDATED, SLIGHT SUB Q IN UPPER CHEST BELOW NECK, NO VENT CHANGES MADE, CHANGE HME, ALL VENT ALARMS GOOD, AMBU BAG AT BEDSIDE, ABG TO BE DONE BEFORE 07;00. Araceli EAST RCP Addendum: 02/07/22 at 0249 by LISBETH EAST RT Amended: Links added.
[2022-02-07 05:17] LABS: HEMATOCRIT 26.2 % (31.2-41.9); MEAN CORPUSCULAR HEMOGLOBIN 30.5 uug (24.7-32.8); PLATELET COUNT (AUTO) 345 K/uL (179-408)
[2022-02-07 05:21] LABS: CREATININE 0.7 mg/dL (0.6-1.3); MAGNESIUM 1.7 mg/dL (1.8-2.4); PHOSPHOROUS 3.8 mg/dL (2.5-4.9); POTASSIUM 3.7 mmol/L (3.5-5.1)
[2022-02-07 06:23] LABS: ABG BASE EXCESS 1.7 mmol/L; ABG HCO3 24.9 mmol/L; ABG PCO2 33.6 mmHg (35.0-45.0); ABG PH 7.487 (7.350-7.450); ABG PO2 99.9 mmHg (75.0-100.0); ABG SITE LEFT RADIAL; ABG TOTAL HEMOGLOBIN 9.5 G/dL (12.0-16.0); COHb 0.1 % (0.5-1.5); MetHb 0.2 % (0.0-1.5); O2Hb 97.3 % (94.0-97.0); VENT MODE VENT - A/C; VT, ABG 350 mL
--- NOTE | 2022-02-07 07:20 | NUR ---
Received patient on cardiac monitoring NST SBP within normal limits. As reported NG-T out accidentally. patient NPO awaiting PEG placement today any time. ETT 7.5 23LL A/C 10 Tv350 FIO2 30%. Barrera to gravity. TLC present. will continue to monitor.
--- NOTE | 2022-02-07 07:41 | NUR ---
PT REMAINS ON CONT. MECHANICAL VENTILATION VIA LUNA VENT. SETTINGS ARE AC 10, 350, FIO2 30%. ORALLY INTUBATED WITH 7.5 ETT APPROX. 23 CM AT THE LIP LINE. PRIOR TO ORAL CARE AND ETT READJUSTMENT, NOTICED BLEEDING IN MOUTH. CUT INSIDE OF LEFT SIDE OF LIP, CHECKED AND CONFIRMED WITH RN ANUM. ORAL CARE DONE CAREFULLY. Q2 ETT READJUSTMENT TO BE DONE AWAY FROM CUT AREA. SUCTIONED SMALL AMOUNT OF THICK, BROWN SECRETIONS. HME CHANGED. VENT ALARMS CHECKED, ARE ON AND AUDIBLE. NO S/S OF RESPIRATORY DISTRESS NOTED. NO VENT CHANGES MADE AT THIS TIME. AMBU BAG AT BEDSIDE. VENT PLUGGED INTO RED EMERGENCY OUTLET. WILL CONTINUE TO MONITOR.
[2022-02-07] MEDS ORDERED: methylPREDNISolone SOD SUCC 40 MG/ML VIAL ONE (07:51)
[2022-02-07] MEDS ORDERED: ASPIRIN 81 MG TAB.CHEW ONE (07:52)
[2022-02-07] MEDS ORDERED: FOLIC ACID 1 MG TABLET ONE (07:52)
[2022-02-07] MEDS ORDERED: METOPROLOL SUCCINATE XL 25 MG TAB.SR.24H PO ONE (07:53)
[2022-02-07] MEDS ORDERED: HEPARIN SODIUM,PORCINE 5,000 UNITS/ML VIAL ONE ×2 (07:54→20:59)
[2022-02-07] MEDS: levETIRAcetam 500 MG/5 ML LIQUID UDC NG SCH ×2 (09:00→21:00)
[2022-02-07] MEDS: FLUTICASONE/VILANTEROL 1 EACH BLST.W.DEV INH SCH (09:00)
[2022-02-07] MEDS: FAMOTIDINE 20 MG TABLET NG SCH ×2 (09:00→21:01)
[2022-02-07] MEDS: MEMANTINE HCL 10 MG TABLET PO SCH (09:00)
[2022-02-07] MEDS: METOPROLOL TARTRATE 25 MG TABLET PO SCH ×2 (09:00→21:02)
[2022-02-07] MEDS: FOLIC ACID 1 MG TABLET PO SCH (09:00)
[2022-02-07] MEDS: ASPIRIN 81 MG TAB.CHEW PO SCH (09:00)
[2022-02-07] MEDS: LOSARTAN POTASSIUM 50 MG TABLET NG SCH (09:00)
--- NOTE | 2022-02-07 09:12 | NUR ---
A call from Radiologist Dr. Goldman report of left chest tube been out of place an resting on subcutaneous tissue, as stated by . chest-t was in place yesterday and this morning X-chest X-ray at 0600 shows been pulled out from normal position.
--- NOTE | 2022-02-07 09:17 | NUR ---
Attending Rox Buckner called to be informed of LCT been off chest wall. Pulmonary. services Dr. Ureña not available. and 1045 I was informed by attending that solutions developer Dr. Piedra Aware of findings.
[2022-02-07] MEDS: DORZOLAMIDE/TIMOLOL OPHT DROP 10 ML BOTTLE LEFTEYE SCH ×2 (09:28→17:35)
[2022-02-07] MEDS: methylPREDNISolone SOD SUCC 40 MG/ML VIAL IV SCH (09:28)
[2022-02-07] MEDS: CLOTRIMAZOLE 1% CREAM 30 GM TUBE TOP SCH ×2 (09:31→17:35)
[2022-02-07] MEDS: HEPARIN SODIUM,PORCINE 5,000 UNITS/ML VIAL SQ SCH ×2 (09:31→21:15)
[2022-02-07] MEDS: REMEDY ESSENTIAL ZINC PASTE 113 GM TOP SCH ×2 (09:31→21:15)
[2022-02-07] MEDS: MAGNESIUM SULFATE/D5W 100 ML IV SCH ×2 (09:32→10:18)
[2022-02-07] MEDS ORDERED: MORPHINE SULFATE 2 MG/1 ML DISP.SYRIN ONE ×3 (10:13→21:42)
[2022-02-07] MEDS: MORPHINE SULFATE 2 MG/1 ML DISP.SYRIN IV PRN ×3 (10:14→21:44)
--- NOTE | 2022-02-07 11:20 | NUR ---
Pulmonary services Dr. Piedra in the unit to examine pt. report given orders to continue monitoring. Regarding left chest tube orders to continue monitoring received chest tube to remains in place as it was reported.
--- NOTE | 2022-02-07 12:26 | NUR ---
AT this time pt. taken down for PEG placement bilateral chest tube with left in the subcutaneous tissue Right chest tube in place no leaking. Patient taken down for procedure.
[2022-02-07] MEDS ORDERED: DEXAMETHASONE SOD PHOSPHATE 10 MG INJ ONE (12:54)
--- NOTE | 2022-02-07 13:26 | NUR ---
Patient back from OR. as reported procedure not done Anesthesiologist unable to contact pt's sister who gave a telephone consent for PEG placement. Or was provided with the two numbers listed in demographics. Sarah , and .
--- NOTE | 2022-02-07 13:40 | NUR ---
At this time patient taken back to OR for PEG placement. Addendum: 02/07/22 at 1636 by ANUM JAIMES RN orders to resume medication and feeding to be resume in AM 02/07/22
[2022-02-07] MEDS ORDERED: DEXAMETHASONE SOD PHOSPHATE 4 MG INJ IV ONE (14:12)
[2022-02-07] MEDS ORDERED: PROPOFOL 200 MG/20 ML BOTTLE IV ONE (14:12)
[2022-02-07] MEDS ORDERED: CEFAZOLIN 1 G VIAL IM ONE (14:12)
[2022-02-07] MEDS ORDERED: LIDOCAINE-MPF 2% 5 ML VIAL IJ ONE (14:12)
--- NOTE | 2022-02-07 15:00 | NUR ---
Patient back from OR right chest tube noted to be leaking air,. other stein patient stable. PEG left mid abdomen, clamped with order to resume feeding in Am of 02/08/22.
[2022-02-07] MEDS ORDERED: LORAZEPAM 2 MG/1 ML VIAL IV PRN (16:30)
[2022-02-07] MEDS: NYSTATIN CREAM 30 GM TUBE TOP SCH (17:34)
[2022-02-07] MEDS ORDERED: LIDOCAINE 5% OINT 35.44 GM TUBE TP ONE (18:00)
--- NOTE | 2022-02-07 18:24 | NUR ---
Left patient resting comfortably on cardiac monitoring NSR SBP within normal limits. Newly inserted PEG clamped. No bleeding noted. ETT 7.5 23LL A/C 10 Tv 350 FIO2 30%. Bilateral chest-tube reports this am of left chest-tube been out of chest wall. right chest-tube in place leaking air noted post PEG placement. Barrera to gravity, with adequate urine output. Patient placed on First-step mattress. Old insertion chest tube site with stitches in place, with moderate serous sanguinous noted during shift.TLC present. will continue to monitor.
[2022-02-07] MEDS: LATANOPROST OPHT DROP 2.5 ML BOTTLE EACHEYE SCH (20:52)
[2022-02-07] MEDS ORDERED: FAMOTIDINE 20 MG TABLET ONE (20:59)
[2022-02-07] MEDS ORDERED: levETIRAcetam 500 MG/5 ML LIQUID UDC ONE (20:59)
[2022-02-07] MEDS: ATORVASTATIN 40 MG TABLET PO SCH (21:01)
[2022-02-08] VITALS (22 sets, daily range): BP systolic 80–165; BP diastolic 46–105
--- NOTE | 2022-02-08 04:03 | NUR ---
PATIENT ON LUNA VENT WITH 7.5 ET/TUBE IN PLACE AND SECURED WITH ANCHOR FAST, SUCTIONED LIGHT BROWNISH TO ARNETT SECRETIONS, AND ORAL CARE, VENT SETTINGS, A/C 10, VT 350ML, FIO2 @ 30%, PT DOES ASSIST AT TIMES, AFTER YOU SUCTION HER, NO VENT CHANGES MADE, ALL VENT ALARMS GOOD, AMBU BAG AT BEDSIDE, VENT PLUGGED INTO RED WALL OUT, NO ABG ORDER FOR JB EAST RCP Addendum: 02/08/22 at 0406 by LISBETH EAST RT Amended: Links added.
[2022-02-08 04:52] LABS: HEMATOCRIT 26.6 % (31.2-41.9); MEAN CORPUSCULAR HEMOGLOBIN 30.5 uug (24.7-32.8); MEAN CORPUSCULAR VOLUME 92.8 fL (75.5-95.3); PLATELET COUNT (AUTO) 381 K/uL (179-408)
[2022-02-08 04:57] LABS: CREATININE 0.7 mg/dL (0.6-1.3); POTASSIUM 3.5 mmol/L (3.5-5.1)
[2022-02-08] MEDS ORDERED: LORAZEPAM 2 MG/1 ML VIAL ONE (07:09)
--- NOTE | 2022-02-08 07:20 | NUR ---
Received pt. on ventilator ETT 7.5 23LL saturation of 98-100 A/C10, Tv350 FIO2 30%, no respiratory distress. CHest-tubes bilateral chest areas with no changes. PEG with feeding to be resumed. mejia to gravity. Hemodynamically stable. tlc patent. Will continue to monitor. Addendum: 02/12/22 at 0027 by [facility] pt has one chest tube in R upper chest wall. Addendum: 02/12/22 at 0028 by [facility] erro not made in addendum.
[2022-02-08] MEDS: MORPHINE SULFATE 2 MG/1 ML DISP.SYRIN IV PRN (07:53)
[2022-02-08] MEDS: REMEDY ESSENTIAL ZINC PASTE 113 GM TOP SCH ×2 (07:54→21:16)
[2022-02-08] MEDS: CLOTRIMAZOLE 1% CREAM 30 GM TUBE TOP SCH ×2 (07:54→16:27)
[2022-02-08] MEDS: NYSTATIN CREAM 30 GM TUBE TOP SCH ×2 (07:54→21:16)
[2022-02-08] MEDS: HEPARIN SODIUM,PORCINE 5,000 UNITS/ML VIAL SQ SCH ×2 (07:54→21:27)
[2022-02-08] MEDS: DORZOLAMIDE/TIMOLOL OPHT DROP 10 ML BOTTLE LEFTEYE SCH ×2 (07:57→16:27)
[2022-02-08] MEDS: FAMOTIDINE 20 MG TABLET NG SCH ×2 (07:57→21:15)
[2022-02-08] MEDS: LOSARTAN POTASSIUM 50 MG TABLET NG SCH (07:57)
[2022-02-08] MEDS: methylPREDNISolone SOD SUCC 40 MG/ML VIAL IV SCH (07:57)
[2022-02-08] MEDS: levETIRAcetam 500 MG/5 ML LIQUID UDC NG SCH ×2 (07:57→21:15)
[2022-02-08] MEDS ORDERED: HEPARIN SODIUM,PORCINE 5,000 UNITS/ML VIAL ONE ×2 (08:06→21:14)
[2022-02-08] MEDS ORDERED: methylPREDNISolone SOD SUCC 40 MG/ML VIAL ONE (08:06)
[2022-02-08] MEDS ORDERED: FAMOTIDINE 20 MG TABLET ONE ×2 (08:06→21:14)
[2022-02-08] MEDS ORDERED: levETIRAcetam 500 MG/5 ML LIQUID UDC ONE ×2 (08:14→21:14)
[2022-02-08] MEDS ORDERED: MORPHINE SULFATE 2 MG/1 ML DISP.SYRIN ONE (08:27)
[2022-02-08] MEDS: FOLIC ACID 1 MG TABLET PO SCH (08:29)
[2022-02-08] MEDS: ASPIRIN 81 MG TAB.CHEW PO SCH (08:29)
[2022-02-08] MEDS: MEMANTINE HCL 10 MG TABLET PO SCH (08:30)
[2022-02-08] MEDS: METOPROLOL TARTRATE 25 MG TABLET PO SCH ×2 (08:30→21:16)
[2022-02-08] MEDS: FLUTICASONE/VILANTEROL 1 EACH BLST.W.DEV INH SCH (09:00)
--- NOTE | 2022-02-08 09:33 | NUR ---
Pulmonary services, Dr. Piedra in the unit report given informed that patient is fully awake clenching her teeth and informed of lip laceration 2ndary to bitting ETT. orders to resume propofol received.
[2022-02-08] MEDS: PROPOFOL 100 ML IV PRN ×2 (10:42→17:13)
--- NOTE | 2022-02-08 14:00 | NUR ---
Patient seen by attending Rox Loredo orders to continue with care plan received.
[2022-02-08] MEDS: FLUCONAZOLE 100 MG TABLET PO SCH (14:52)
[2022-02-08] MEDS ORDERED: FLUCONAZOLE 100 MG TABLET ONE (14:54)
[2022-02-08] MEDS: IV D5/ 0.9% NACL 1,000 ML IV PRN (16:27)
[2022-02-08] MEDS ORDERED: PROPOFOL 100 ML ONE ×2 (17:12→23:34)
--- NOTE | 2022-02-08 18:52 | NUR ---
Left patient resting comfortably adequately sedated. No changes on Vent settings. Hemodynamically stable. mejia to gravity CHest-T bilateral chest, with zero output. Will endorse for continuity of care.
--- NOTE | 2022-02-08 20:00 | NUR ---
Patient holding in ER in room 1B due to ICU being closed. No ICU nurse schedule to take care of patient. ONLY TWO ER NURSES IN THE ER SCHEDULE WITH 2 ICU PATIENT AND TAKING CARE OF ER PATIENT. Patient in bed on Vent with setting of A/C 10, tidal volume of 350, no PEEP, FI02 of 30%, ET tube size 7.5. Has G Tube patent upon assessmentand tolerating tube feeding with no residual noted. Has two chest tube but only right is functional No distress noted.PAS placed on lower extremity. Triple right groin central line patient with dressing clean and intact.
--- NOTE | 2022-02-08 20:05 | NUR ---
Barrera draining clear yellow urine.
[2022-02-08] MEDS: LATANOPROST OPHT DROP 2.5 ML BOTTLE EACHEYE SCH (21:15)
[2022-02-08] MEDS: ATORVASTATIN 40 MG TABLET PO SCH (21:16)
[2022-02-09] VITALS (23 sets, daily range): BP systolic 84–146; BP diastolic 33–89
[2022-02-09] MEDS: PROPOFOL 100 ML IV PRN ×5 (00:52→19:33)
--- NOTE | 2022-02-09 04:05 | NUR ---
PATIENT ON CONT LUNA VENT WITH 7.5 ET/TUBE IN PLACE SECURED WITH ANCHOR FAST, SUCTION BROWNISH TINGE SECRETIONS, AND CLEAN MOTH, VENT SETTINGS CURRENT A/C 10, VT 350ML, FIO2 @ 30%, ASSIST ONCE IN AWHILE , NO VERBAL RESPONSE, EYES OPEN, NO VENT CHANGES MADE, CHANGE HME, ALL VENT ALARMS GOOD, HR 90 APPROX, NO ABG FOR AM. D CRUZITO FARFAN Addendum: 02/09/22 at 0407 by LISBETH EAST RT Amended: Links added.
[2022-02-09 05:07] LABS: HEMATOCRIT 28.5 % (31.2-41.9); MEAN CORPUSCULAR HEMOGLOBIN 30.5 uug (24.7-32.8); MEAN CORPUSCULAR VOLUME 93.1 fL (75.5-95.3); PLATELET COUNT (AUTO) 406 K/uL (179-408)
[2022-02-09 05:14] LABS: CREATININE 0.6 mg/dL (0.6-1.3); POTASSIUM 3.5 mmol/L (3.5-5.1)
[2022-02-09] MEDS: IV D5/ 0.9% NACL 1,000 ML IV PRN (06:30)
--- NOTE | 2022-02-09 07:15 | NUR ---
Received pt. on ventilator A/C 10 Tv350 FIO2 330%, Chest-T bilateral. Hemodynamically stable, Neuro-stein pt. semi-sedated bitting ETT. with oral care. mejia to gravity. Afebrile. TLC c.d.i. Will continue with care plan.
[2022-02-09] MEDS ORDERED: FOLIC ACID 1 MG TABLET ONE (07:34)
[2022-02-09] MEDS ORDERED: ASPIRIN 81 MG TAB.CHEW ONE (07:34)
[2022-02-09] MEDS ORDERED: levETIRAcetam 500 MG/5 ML LIQUID UDC ONE ×2 (07:34→19:52)
[2022-02-09] MEDS ORDERED: methylPREDNISolone SOD SUCC 40 MG/ML VIAL ONE (07:34)
[2022-02-09] MEDS ORDERED: FAMOTIDINE 20 MG TABLET ONE ×2 (07:34→19:52)
[2022-02-09] MEDS ORDERED: FLUCONAZOLE 100 MG TABLET ONE (07:35)
[2022-02-09] MEDS ORDERED: HEPARIN SODIUM,PORCINE 5,000 UNITS/ML VIAL ONE ×2 (07:35→19:52)
[2022-02-09] MEDS ORDERED: PROPOFOL 100 ML ONE ×3 (07:36→18:53)
[2022-02-09] MEDS: DORZOLAMIDE/TIMOLOL OPHT DROP 10 ML BOTTLE LEFTEYE SCH ×2 (08:09→17:00)
[2022-02-09] MEDS: methylPREDNISolone SOD SUCC 40 MG/ML VIAL IV SCH (08:09)
[2022-02-09] MEDS: FOLIC ACID 1 MG TABLET PO SCH (08:11)
[2022-02-09] MEDS: FAMOTIDINE 20 MG TABLET NG SCH ×2 (08:11→20:04)
[2022-02-09] MEDS: ASPIRIN 81 MG TAB.CHEW PO SCH (08:11)
[2022-02-09] MEDS: FLUCONAZOLE 100 MG TABLET PO SCH (08:11)
[2022-02-09] MEDS: levETIRAcetam 500 MG/5 ML LIQUID UDC NG SCH ×2 (08:11→20:04)
[2022-02-09] MEDS: CLOTRIMAZOLE 1% CREAM 30 GM TUBE TOP SCH ×2 (08:11→17:00)
[2022-02-09] MEDS: NYSTATIN CREAM 30 GM TUBE TOP SCH ×2 (08:12→20:05)
[2022-02-09] MEDS: REMEDY ESSENTIAL ZINC PASTE 113 GM TOP SCH ×2 (08:12→20:05)
[2022-02-09] MEDS: HEPARIN SODIUM,PORCINE 5,000 UNITS/ML VIAL SQ SCH ×2 (08:17→20:06)
[2022-02-09] MEDS: MEMANTINE HCL 10 MG TABLET PO SCH (08:17)
[2022-02-09] MEDS: METOPROLOL TARTRATE 25 MG TABLET PO SCH ×2 (08:18→20:04)
[2022-02-09] MEDS: LOSARTAN POTASSIUM 50 MG TABLET NG SCH (08:19)
[2022-02-09] MEDS ORDERED: POTASSIUM CHLORIDE 20 MEQ POWDER PACKET GT ONE (09:00)
[2022-02-09] MEDS ORDERED: LOSARTAN POTASSIUM 50 MG TABLET NG SCH (09:00)
[2022-02-09] MEDS ORDERED: FUROSEMIDE 20 MG/2 ML VIAL IV ONE (09:15)
[2022-02-09] MEDS ORDERED: FUROSEMIDE 20 MG/2 ML VIAL ONE (11:02)
[2022-02-09] MEDS ORDERED: POTASSIUM CHLORIDE 20 MEQ POWDER PACKET ONE (11:02)
[2022-02-09] MEDS ORDERED: PHENYTOIN SODIUM 100 MG/2 ML VIAL IV ONE (13:31)
[2022-02-09] MEDS: LATANOPROST OPHT DROP 2.5 ML BOTTLE EACHEYE SCH (20:04)
[2022-02-09] MEDS: ATORVASTATIN 40 MG TABLET PO SCH (20:04)
[2022-02-10] VITALS (22 sets, daily range): BP systolic 93–181; BP diastolic 50–93
[2022-02-10] MEDS ORDERED: PROPOFOL 100 ML ONE ×2 (00:50→12:51)
--- NOTE | 2022-02-10 00:57 | NUR ---
With morning care and repositioning Left chest_T. insertion site seal with petroleum gauze, and left covered with 4X4. RC-T now noted to be with air-leak. And crepitus noted to be increasing. call circuit worker Pooja Liz notified. no new orders received. Addendum: 02/10/22 at 0715 by ANUM JAIMES RN With care and repositioning left chest tube out.
[2022-02-10] MEDS: PROPOFOL 100 ML IV PRN ×2 (01:00→06:22)
[2022-02-10] MEDS: IV D5/ 0.9% NACL 1,000 ML IV PRN (02:37)
[2022-02-10 04:54] LABS: MEAN CORPUSCULAR HEMOGLOBIN 30.5 uug (24.7-32.8); MEAN CORPUSCULAR VOLUME 93.7 fL (75.5-95.3); PLATELET COUNT (AUTO) 342 K/uL (179-408)
[2022-02-10 04:58] LABS: CREATININE 0.5 mg/dL (0.6-1.3); POTASSIUM 3.8 mmol/L (3.5-5.1)
[2022-02-10 05:03] LABS: MAGNESIUM 1.8 mg/dL (1.8-2.4); PHOSPHOROUS 3.7 mg/dL (2.5-4.9)
[2022-02-10 06:08] LABS: ABG BASE EXCESS 7.9 mmol/L; ABG HCO3 32.3 mmol/L; ABG PH 7.474 (7.350-7.450); ABG PO2 78.2 mmHg (75.0-100.0); ABG SITE LEFT RADIAL; ABG TOTAL HEMOGLOBIN 9.4 G/dL (12.0-16.0); COHb 0.4 % (0.5-1.5); MetHb 0.3 % (0.0-1.5); O2Hb 94.5 % (94.0-97.0); VENT MODE VENT - A/C; VT, ABG 350 mL
[2022-02-10] MEDS: MAGNESIUM SULFATE/D5W 100 ML IV SCH ×2 (07:30→08:30)
[2022-02-10] MEDS ORDERED: POTASSIUM CHLORIDE 20 MEQ POWDER PACKET GT ONE (07:30)
[2022-02-10] MEDS: ALBUMIN HUMAN 25% 100 ML IV SCH ×3 (08:00→22:00)
[2022-02-10] MEDS ORDERED: LOSARTAN POTASSIUM 25 MG TABLET NG SCH (09:00)
[2022-02-10] MEDS ORDERED: MAGNESIUM SULFATE/D5W 100 ML ONE (09:19)
[2022-02-10] MEDS ORDERED: POTASSIUM CHLORIDE 20 MEQ POWDER PACKET ONE (09:19)
[2022-02-10] MEDS ORDERED: ALBUMIN HUMAN 25% 100 ML ONE (09:21)
[2022-02-10] MEDS ORDERED: levETIRAcetam 500 MG/5 ML LIQUID UDC ONE (11:10)
[2022-02-10] MEDS ORDERED: FAMOTIDINE 20 MG TABLET ONE (11:10)
[2022-02-10] MEDS ORDERED: methylPREDNISolone SOD SUCC 40 MG/ML VIAL ONE (11:11)
[2022-02-10] MEDS ORDERED: levETIRAcetam 500 MG/5 ML VIAL IV ONE ×2 (11:11→21:20)
[2022-02-10] MEDS ORDERED: ASPIRIN 81 MG TAB.CHEW ONE (11:12)
[2022-02-10] MEDS ORDERED: FOLIC ACID 1 MG TABLET ONE (11:13)
[2022-02-10] MEDS ORDERED: FLUCONAZOLE 100 MG TABLET ONE (11:13)
[2022-02-10] MEDS ORDERED: HEPARIN SODIUM,PORCINE 5,000 UNITS/ML VIAL ONE ×2 (11:14→21:20)
[2022-02-10] MEDS: levETIRAcetam 500 MG/5 ML LIQUID UDC NG SCH ×2 (11:25→21:52)
[2022-02-10] MEDS: FOLIC ACID 1 MG TABLET PO SCH (11:27)
[2022-02-10] MEDS: METOPROLOL TARTRATE 25 MG TABLET PO SCH ×2 (11:28→22:00)
[2022-02-10] MEDS: methylPREDNISolone SOD SUCC 40 MG/ML VIAL IV SCH (11:28)
[2022-02-10] MEDS: FAMOTIDINE 20 MG TABLET NG SCH ×2 (11:31→21:52)
[2022-02-10] MEDS: ASPIRIN 81 MG TAB.CHEW PO SCH ×2 (11:31→11:42)
[2022-02-10] MEDS: MEMANTINE HCL 10 MG TABLET PO SCH (11:31)
[2022-02-10] MEDS: FLUCONAZOLE 100 MG TABLET PO SCH (11:31)
[2022-02-10] MEDS: REMEDY ESSENTIAL ZINC PASTE 113 GM TOP SCH ×2 (11:32→21:00)
[2022-02-10] MEDS: HEPARIN SODIUM,PORCINE 5,000 UNITS/ML VIAL SQ SCH ×2 (11:41→21:53)
[2022-02-10] MEDS: FUROSEMIDE 20 MG/2 ML VIAL IV SCH ×2 (11:46→21:52)
[2022-02-10] MEDS ORDERED: FUROSEMIDE 20 MG/2 ML VIAL ONE ×2 (11:46→21:20)
[2022-02-10] MEDS: DORZOLAMIDE/TIMOLOL OPHT DROP 10 ML BOTTLE LEFTEYE SCH ×2 (12:33→18:30)
[2022-02-10] MEDS: NYSTATIN CREAM 30 GM TUBE TOP SCH ×2 (12:35→21:00)
[2022-02-10] MEDS: CLOTRIMAZOLE 1% CREAM 30 GM TUBE TOP SCH ×2 (12:35→18:30)
[2022-02-10] MEDS ORDERED: ALBUMIN HUMAN 25% 50 ML ONE (17:24)
[2022-02-10] MEDS ORDERED: MORPHINE SULFATE 2 MG/1 ML DISP.SYRIN ONE (17:25)
--- NOTE | 2022-02-10 17:30 | NUR ---
Pt remains intubated on cmv, spo2 and respirations wnl. HHN tx's tolerated well without adverse reaction. No vent changes made today. No signs or symptoms of resp. distress noted during shift. Trach/oral sxn prn. Will continue to monitor and follow current respiratory treatments as ordered. Addendum: 02/10/22 at 1838 by DAVIE SCHNEIDER RT CORRECTION. DOCUMENTATION ERROR. NO HHN TX'S GIVEN TO PT.
--- NOTE | 2022-02-10 18:24 | NUR ---
pT IS AWAKE AN DIS IN NO APPARENT DISTRESS. PT IS CALM. ET IN MIDDLE OF MOUTH. CREPITUS IS OBVIOUS. BREATH SOUND CREPITUS IS AUSCULTATED. AND PALPABLE UNDER THE ANTERIOR CHEST WALL. RESP IS UNLABORED,. MORPHINE SULFATE ADMINISTERED FOR S/S OF PAIN.. VS STABLE. CHEST TUBE DRAINS 50 ML THIS SHIFT VIA CHEST TUBE. SEROSANGUINOUS DRAINAGE.
[2022-02-10] MEDS: MORPHINE SULFATE 2 MG/1 ML DISP.SYRIN IV PRN ×2 (18:27→21:51)
--- NOTE | 2022-02-10 18:45 | NUR ---
tf resume. S PER REGISTERED DIETICIAONN ON PATIENTS" CASE NURSING TO NOTIFY RD WHEN SEDATION IS TITRATE OFF. ENDORSE SAME TO RECEIVING RN. pT HAS BEEN TITRATED OFF PROPOFOL THIS SHIFT. ivf DISCONTINUED PER MD. PT DIURESED 5300 ML OF PALE YELLOW URINNNNNNNNNNNNNN
[2022-02-10] MEDS ORDERED: FAMOTIDINE. 20 MG/2 ML VIAL IV ONE (21:21)
[2022-02-10] MEDS: LATANOPROST OPHT DROP 2.5 ML BOTTLE EACHEYE SCH (21:52)
[2022-02-10] MEDS: ATORVASTATIN 40 MG TABLET PO SCH (21:52)
[2022-02-11] VITALS (22 sets, daily range): BP systolic 109–156; BP diastolic 65–86
[2022-02-11] MEDS ORDERED: ALBUMIN HUMAN 25% 50 ML ONE (01:31)
[2022-02-11] MEDS: ALBUMIN HUMAN 25% 100 ML IV SCH (02:03)
[2022-02-11 05:31] LABS: HEMATOCRIT 24.2 % (31.2-41.9); MEAN CORPUSCULAR HEMOGLOBIN 30.5 uug (24.7-32.8); MEAN CORPUSCULAR VOLUME 93.2 fL (75.5-95.3); PLATELET COUNT (AUTO) 347 K/uL (179-408)
[2022-02-11 06:02] LABS: CREATININE 0.6 mg/dL (0.6-1.3); MAGNESIUM 1.8 mg/dL (1.8-2.4); PHOSPHOROUS 4.4 mg/dL (2.5-4.9); POTASSIUM 3.6 mmol/L (3.5-5.1)
[2022-02-11] MEDS ORDERED: GLUCERNA 1.2 1000ML LIQUID NG PRN (06:15)
[2022-02-11] MEDS ORDERED: LOSARTAN POTASSIUM 25 MG TABLET NG SCH ×2 (09:00→09:06)
[2022-02-11] MEDS ORDERED: LOSARTAN POTASSIUM 25 MG TABLET PO SCH (09:00)
[2022-02-11] MEDS: METOPROLOL TARTRATE 25 MG TABLET PO SCH ×2 (09:00→21:00)
[2022-02-11] MEDS ORDERED: METOPROLOL TARTRATE 50 MG TABLET ONE (10:39)
[2022-02-11] MEDS ORDERED: methylPREDNISolone SOD SUCC 40 MG/ML VIAL ONE (10:40)
[2022-02-11] MEDS ORDERED: FUROSEMIDE 20 MG/2 ML VIAL ONE (10:41)
[2022-02-11] MEDS ORDERED: FOLIC ACID 1 MG TABLET ONE (10:46)
[2022-02-11] MEDS ORDERED: FLUCONAZOLE 100 MG TABLET ONE (10:46)
[2022-02-11] MEDS ORDERED: FAMOTIDINE 20 MG TABLET ONE (10:46)
[2022-02-11] MEDS ORDERED: levETIRAcetam 500 MG/5 ML LIQUID UDC ONE (10:47)
[2022-02-11] MEDS ORDERED: HEPARIN SODIUM,PORCINE 5,000 UNITS/ML VIAL ONE (10:48)
[2022-02-11] MEDS: levETIRAcetam 500 MG/5 ML LIQUID UDC NG SCH ×2 (11:07→21:00)
[2022-02-11] MEDS: FAMOTIDINE 20 MG TABLET NG SCH ×2 (11:07→21:00)
[2022-02-11] MEDS: FOLIC ACID 1 MG TABLET PO SCH (11:08)
[2022-02-11] MEDS: FLUCONAZOLE 100 MG TABLET PO SCH (11:08)
[2022-02-11] MEDS: methylPREDNISolone SOD SUCC 40 MG/ML VIAL IV SCH (11:09)
[2022-02-11] MEDS: HEPARIN SODIUM,PORCINE 5,000 UNITS/ML VIAL SQ SCH ×2 (11:13→21:00)
[2022-02-11] MEDS: FUROSEMIDE 20 MG/2 ML VIAL IV SCH (11:17)
[2022-02-11] MEDS: CLOTRIMAZOLE 1% CREAM 30 GM TUBE TOP SCH (12:18)
[2022-02-11] MEDS: NYSTATIN CREAM 30 GM TUBE TOP SCH ×2 (12:19→21:00)
[2022-02-11] MEDS: MEMANTINE HCL 10 MG TABLET PO SCH (12:19)
[2022-02-11] MEDS: REMEDY ESSENTIAL ZINC PASTE 113 GM TOP SCH ×2 (12:20→21:00)
[2022-02-11] MEDS: DORZOLAMIDE/TIMOLOL OPHT DROP 10 ML BOTTLE LEFTEYE SCH ×2 (12:21→18:08)
[2022-02-11] MEDS ORDERED: MORPHINE SULFATE 2 MG/1 ML DISP.SYRIN ONE (13:35)
--- NOTE | 2022-02-11 14:00 | NUR ---
Resume sedation, Diprivan as ordered. Plans to Per Niranjan, repeat CxR, to verifiy placement of R chest tube.
--- NOTE | 2022-02-11 16:00 | NUR ---
No distress noted. CXRAY has been completed ER doctor aware of plan to verification, per Dr Ureña.. No new order Sapphire bearden in progress. No s/s of any distress..
[2022-02-11] MEDS ORDERED: IV NS 1000 ML 1,000 ML IV ONE (19:45)
[2022-02-11] MEDS: ATORVASTATIN 40 MG TABLET PO SCH (21:00)
[2022-02-11] MEDS: LATANOPROST OPHT DROP 2.5 ML BOTTLE EACHEYE SCH (21:00)
[2022-02-11] MEDS ORDERED: PROPOFOL 100 ML ONE (21:32)
[2022-02-11] MEDS: PROPOFOL 100 ML IV PRN (23:01)
[2022-02-11] MEDS ORDERED: levETIRAcetam 500 MG/5 ML VIAL IV ONE (23:29)
[2022-02-11] MEDS ORDERED: ATORVASTATIN 20 MG TABLET ONE (23:29)
[2022-02-11] MEDS ORDERED: FAMOTIDINE. 20 MG/2 ML VIAL IV ONE (23:30)
[2022-02-12] VITALS (57 sets, daily range): BP systolic 76–149; BP diastolic 34–85
--- NOTE | 2022-02-12 00:30 | NUR ---
Assume careof patient lying in bed,;eyes opened, and unresponsive to command. ETT 7.5 lying at 23 cm 0f mid lip line. No distress noted. FIO2 100%. continuous cardiac monitoring in progress, FC to gravity. R upper PICC intact and tube feeding is off. Pt reassed. Please refer to ICU/[facility] fowsheet.
--- NOTE | 2022-02-12 00:36 | NUR ---
Call received from [place] [facility], chest tube is not is the R lung., Dr Ureña on unit was informed of same. Dressing at the site if chest tube is intact clean and dry. Pt neck remains swollen. and crepitus resolving. HOB 45 degree.. Addendum: 02/12/22 at 0043 by [id number] RN Late Entry note in regards to event on 02/10/22 at 0845.
--- NOTE | 2022-02-12 03:33 | NUR ---
PATIENT REMAINS ON LUNA VENT WITH 7.5 ET/TUBE IN PLACE AND SECURED WITH ANCHOR FAST, ROTATE Q2 HOURS, PLACEMENT, SUCTION ORAL SECRETIONS, AND CLEAN MOUTH, NO VENT CHANGES MADE, CURRENT VENT SETTINGS, A/C 10, 350ML, FIO2 2 30%, ALL VENT ALARMS GOOD, ABG ORDER FOR 0800, CHANGE HME. Araceli EAST RCP
[2022-02-12 04:59] LABS: HEMATOCRIT 24.5 % (31.2-41.9); MEAN CORPUSCULAR HEMOGLOBIN 30.5 uug (24.7-32.8); MEAN CORPUSCULAR VOLUME 93.5 fL (75.5-95.3); PLATELET COUNT (AUTO) 314 K/uL (179-408)
[2022-02-12 06:02] LABS: CREATININE 0.5 mg/dL (0.6-1.3); MAGNESIUM 1.8 mg/dL (1.8-2.4); PHOSPHOROUS 3.9 mg/dL (2.5-4.9); POTASSIUM 3.1 mmol/L (3.5-5.1)
[2022-02-12 08:10] LABS: ABG BASE EXCESS 10.1 mmol/L; ABG HCO3 34.4 mmol/L; ABG PCO2 45.4 mmHg (35.0-45.0); ABG PH 7.497 (7.350-7.450); ABG PO2 72.5 mmHg (75.0-100.0); ABG SITE LEFT RADIAL; ABG TOTAL HEMOGLOBIN 9.3 G/dL (12.0-16.0); COHb 0.8 % (0.5-1.5); MetHb 0.3 % (0.0-1.5); O2Hb 92.8 % (94.0-97.0); VENT MODE VENT - A/C; VT, ABG 350 mL
[2022-02-12] MEDS ORDERED: ASPIRIN 81 MG TAB.CHEW ONE (08:16)
[2022-02-12] MEDS ORDERED: FOLIC ACID 1 MG TABLET ONE (08:16)
[2022-02-12] MEDS ORDERED: FAMOTIDINE 20 MG TABLET ONE ×2 (08:16→21:25)
[2022-02-12] MEDS ORDERED: levETIRAcetam 500 MG/5 ML LIQUID UDC ONE (08:16)
[2022-02-12] MEDS ORDERED: METOPROLOL TARTRATE 50 MG TABLET ONE (08:16)
[2022-02-12] MEDS ORDERED: FLUCONAZOLE 100 MG TABLET ONE (08:17)
[2022-02-12] MEDS: FOLIC ACID 1 MG TABLET PO SCH (08:19)
[2022-02-12] MEDS: FLUCONAZOLE 100 MG TABLET PO SCH (08:19)
[2022-02-12] MEDS: ASPIRIN 81 MG TAB.CHEW PO SCH (08:19)
[2022-02-12] MEDS: FAMOTIDINE 20 MG TABLET NG SCH ×2 (08:19→21:38)
[2022-02-12] MEDS: METOPROLOL TARTRATE 25 MG TABLET PO SCH ×2 (08:20→21:00)
[2022-02-12] MEDS: HEPARIN SODIUM,PORCINE 5,000 UNITS/ML VIAL SQ SCH ×2 (08:21→21:00)
[2022-02-12] MEDS: NYSTATIN CREAM 30 GM TUBE TOP SCH ×2 (08:22→21:00)
[2022-02-12] MEDS: REMEDY ESSENTIAL ZINC PASTE 113 GM TOP SCH ×2 (08:22→21:00)
[2022-02-12] MEDS: DORZOLAMIDE/TIMOLOL OPHT DROP 10 ML BOTTLE LEFTEYE SCH ×2 (08:23→17:03)
[2022-02-12] MEDS: levETIRAcetam 500 MG/5 ML LIQUID UDC NG SCH ×2 (08:23→21:00)
[2022-02-12] MEDS ORDERED: methylPREDNISolone SOD SUCC 40 MG/ML VIAL ONE (08:27)
[2022-02-12] MEDS ORDERED: FUROSEMIDE 20 MG/2 ML VIAL ONE (08:27)
[2022-02-12] MEDS ORDERED: POTASSIUM CHLORIDE 50 ML ONE ×2 (08:28→08:43)
[2022-02-12] MEDS ORDERED: POTASSIUM CHLORIDE 20 MEQ POWDER PACKET ONE ×2 (08:28→08:43)
[2022-02-12] MEDS: POTASSIUM CHLORIDE 50 ML IV SCH ×4 (08:30→11:38)
[2022-02-12] MEDS ORDERED: POTASSIUM CHLORIDE 20 MEQ POWDER PACKET GT ONE (08:30)
[2022-02-12] MEDS: methylPREDNISolone SOD SUCC 40 MG/ML VIAL IV SCH (08:31)
[2022-02-12] MEDS: FUROSEMIDE 20 MG/2 ML VIAL IV SCH (08:31)
--- NOTE | 2022-02-12 09:00 | NUR ---
Dr. Ureña at bedside, update given. No new orders.
--- NOTE | 2022-02-12 09:01 | NUR ---
Dr. Yanni Francois at bedside. Patient report given. Plan for trach placement tomorrow.
--- NOTE | 2022-02-12 09:15 | NUR ---
Dr. Francois spoke to pt next of Kin sister Pauline Turner. Consent was obtain for tracheostomy with 2 RN. Per , NPO at midnight, HOLD feeding. HOLD Herapin moving forward. Will continue to monitor.
[2022-02-12] MEDS: MEMANTINE HCL 10 MG TABLET PO SCH (09:19)
--- NOTE | 2022-02-12 11:15 | NUR ---
Dean at bedside. Updated her regarding pt. Brought to her attention about bilateral hands edematous and some discoloration. Elevated bilateral arms. Reported patient crepitus around the neck, left eye and upper chest worsening. CXR ordered. Will continue to monitor.
--- NOTE | 2022-02-12 11:34 | NUR ---
Monica patterson applied d/t cold bilateral upper ext. Will continue to monitor.
[2022-02-12] MEDS ORDERED: IV NS 1000 ML 1,000 ML IV ONE ×2 (12:30→12:45)
[2022-02-12] MEDS ORDERED: NOREPINEPHRINE BITARTRATE 8 MG in IV NORMAL SALINE 242 ML IV PRN (12:30)
--- NOTE | 2022-02-12 12:30 | NUR ---
Decreased BP as low as 70's/40's. RECRUITING SCHEDULER made aware, 1L bolus and stat CXR ordered and Levo on stanby. Will continue to monitor.
--- NOTE | 2022-02-12 14:12 | NUR ---
CXR resulted. NO pneumothorax noted. Reported to ARCHANA Moran. Will closely monitor.
[2022-02-12] MEDS ORDERED: PROPOFOL 100 ML ONE ×2 (14:17→20:01)
[2022-02-12] MEDS: PROPOFOL 100 ML IV PRN (14:38)
--- NOTE | 2022-02-12 15:11 | NUR ---
Wound care provided on the right arm. Will continue to monitor.
--- NOTE | 2022-02-12 18:34 | NUR ---
Crepitus remains present all over her body. Vent setting remains R10, TV 350, FiO2 100 with NO PEEP. Dressing on the right upper chest wall (where the chest tube was before) remains clean, dry and intact. Neuro stein, patient able to open eyes but is unable to follow commands and non verbal. SR in the monitor. Monica huggar in place, BUE elevated due to help with edema. Tube feeing at goal 60, tolerating it well with minimal residual. Femoral line remains patient and intact on the right groin. Barrera care provided. Good urine output. Gtube site care provided, cleaned and changed slit dressing. Loose BM x 1 today. SCD's on. Safety and comfort measures maintained t/o shift. All meds given as ordered. All needs met.
--- NOTE | 2022-02-12 18:46 | NUR ---
Remains sedated with Propofol at 10 mcgs. Will closely monitor.
[2022-02-12] MEDS: LATANOPROST OPHT DROP 2.5 ML BOTTLE EACHEYE SCH (21:00)
[2022-02-12] MEDS ORDERED: levETIRAcetam 250 MG TABLET ONE (21:25)
[2022-02-12] MEDS ORDERED: ATORVASTATIN 20 MG TABLET ONE (21:26)
[2022-02-12] MEDS: ATORVASTATIN 40 MG TABLET PO SCH (21:47)
[2022-02-13] VITALS (21 sets, daily range): BP systolic 90–171; BP diastolic 49–104
--- NOTE | 2022-02-13 03:29 | NUR ---
PATIENT ON CONT LUNA VENT WITH 7.5 ET/TUBE IN PLACE AND SECURED, WITH ANCHOR FAST , LEFT EYE SLIGHTLY CLOSED, SUB Q, NO VERBAL RESPONSE, PT DOES ASSIST AT TIMES, SUCTIONED BROWNISH TINGE SECRETIONS, ORAL CARE, CHANGED HME, NO VENT CHANGES MADE, VENT SETTINGS, A/C 10, 350ML,30%, ABG TO BE DONE BEFORE 0600. Araceli EAST RCP Addendum: 02/13/22 at 0331 by LISBETH EAST RT Amended: Links added.
[2022-02-13 04:58] LABS: HEMATOCRIT 23.7 % (31.2-41.9); MEAN CORPUSCULAR HEMOGLOBIN 30.6 uug (24.7-32.8); MEAN CORPUSCULAR VOLUME 94.2 fL (75.5-95.3); PLATELET COUNT (AUTO) 319 K/uL (179-408)
[2022-02-13 05:23] LABS: POTASSIUM 3.3 mmol/L (3.5-5.1)
[2022-02-13 05:24] LABS: CREATININE 0.5 mg/dL (0.6-1.3); MAGNESIUM 1.9 mg/dL (1.8-2.4); PHOSPHOROUS 3.6 mg/dL (2.5-4.9)
--- NOTE | 2022-02-13 06:00 | NUR ---
--RECEIVED PT ON VENT VIA ETT. PT HAS POX OF 98-100%. PT HAS DIMINISHED BS.PT ALSO HAS GENEREALIZED CREPITUS. IS AWARE. PT HAD LARGE AMT OF THICK ARNETT SPUT./PT HAS THICK WHITE-CLR ORAL SECRETIONS. PT WALKER SX WITH NS LAVAGE WELL. PT OPEN RIGHT ONLY BUT DOESN'T TRACK. LEFT EYES IS SWOLLEN. HOB UP >30 DEGREES. PT IS OBESE. 2 RNS NEEDED FOR TURNING. PT TURNED Q2HRS. PT HAS RIGHT FEMEROL TLC. WITH PROFOFOL @10MCG/HR. PT WALKER WELL. F/C I/P-U/O ADEQ-900CC/SERGEI-CLR. PT ALSO HAD 1 LARGE BRN SOFT STOOL. BATH DONE. PT WALKER WELL. PT ALSO HAS DRSG D/I FROM WHERE CT USED TO BE-ON RIGHT UPPER CHEST AND SURG. WOUND INTACT ON RIGHT SIDE-LOWER THORACIC AREA. INCISION IS OPEN TO AIR AND IS D/I. PT HAS DISPO FOR TRACH THIS AM. PT HAS BEEN NPO AFTER MN-PT HAD BEEN RECEIVING GLUCERNA T.FEEDG @60CC/HR. PT WALKER WELL WITH RESID OF 10CC. AM LABS DONE. OR NURSE CALLING THIS MORN REGARDING PT'S STATUS. GEN. COND. HAS BEEN STABLE/GUARDED. PT ENDORSED TO NERIS IBARRA. DILIA CORDON
[2022-02-13 06:17] LABS: ABG HCO3 31.2 mmol/L; ABG PCO2 43.4 mmHg (35.0-45.0); ABG PH 7.475 (7.350-7.450); ABG PO2 68.6 mmHg (75.0-100.0); ABG SITE LEFT RADIAL; ABG TOTAL HEMOGLOBIN 8.7 G/dL (12.0-16.0); COHb 0.1 % (0.5-1.5); MetHb 0.2 % (0.0-1.5); O2Hb 91.7 % (94.0-97.0); VENT MODE VENT - A/C; VT, ABG 350 mL
--- NOTE | 2022-02-13 07:20 | NUR ---
Received report from night cleaner RN. Per nurse, the patient will be brought to the OR around 0900. Patient has been reported to have been NPO since 12 midnight last night in preparation for procedure.
[2022-02-13] MEDS: CLOTRIMAZOLE 1% CREAM 30 GM TUBE TOP SCH ×5 (09:00→17:41)
[2022-02-13] MEDS ORDERED: DEXAMETHASONE SOD PHOSPHATE 10 MG INJ ONE (09:36)
[2022-02-13] MEDS ORDERED: FENTANYL CITRATE 100 MCG/2 ML AMPUL ONE (09:36)
[2022-02-13] MEDS ORDERED: SUCCINYLCHOLINE CHLORIDE 200 MG/10 ML VIAL ONE (09:37)
--- NOTE | 2022-02-13 09:42 | NUR ---
Patient brought to OR for tracheostomy procedure.
--- NOTE | 2022-02-13 09:56 | NUR ---
Per ALEM Fajardo to administer AM meds and resume tube feeding after procedure.
[2022-02-13] MEDS ORDERED: BUPIVACAINE PF 0.5% 30 ML VIAL ONE (10:03)
[2022-02-13] MEDS ORDERED: LIDOCAINE HCL 1% 20 ML VIAL ONE (10:03)
--- NOTE | 2022-02-13 10:39 | NUR ---
Patient back from tracheostomy procedure.
[2022-02-13] MEDS: MEMANTINE HCL 10 MG TABLET PO SCH (10:48)
[2022-02-13] MEDS: METOPROLOL TARTRATE 25 MG TABLET PO SCH ×2 (10:48→21:00)
[2022-02-13] MEDS ORDERED: PROPOFOL 200 MG/20 ML BOTTLE IV ONE (10:50)
[2022-02-13] MEDS ORDERED: ASPIRIN 81 MG TAB.CHEW ONE (10:50)
[2022-02-13] MEDS ORDERED: ONDANSETRON 4 MG/2 ML VIAL IV ONE (10:50)
[2022-02-13] MEDS ORDERED: LIDOCAINE-MPF 2% 5 ML VIAL IJ ONE (10:50)
[2022-02-13] MEDS ORDERED: SEVOFLURANE 250 ML BOTTLE IH ONE (10:50)
[2022-02-13] MEDS ORDERED: METOCLOPRAMIDE HCL 10 MG/2 ML VIAL IV ONE (10:50)
[2022-02-13] MEDS ORDERED: CEFAZOLIN 1 G VIAL IM ONE (10:50)
[2022-02-13] MEDS ORDERED: FOLIC ACID 1 MG TABLET ONE (10:51)
[2022-02-13] MEDS ORDERED: FAMOTIDINE 20 MG TABLET ONE ×2 (10:51→21:10)
[2022-02-13] MEDS ORDERED: methylPREDNISolone SOD SUCC 40 MG/ML VIAL ONE (10:51)
[2022-02-13] MEDS ORDERED: levETIRAcetam 500 MG/5 ML LIQUID UDC ONE ×2 (10:51→21:10)
[2022-02-13] MEDS ORDERED: FLUCONAZOLE 100 MG TABLET ONE (10:51)
[2022-02-13] MEDS: FLUCONAZOLE 100 MG TABLET PO SCH (10:58)
[2022-02-13] MEDS: levETIRAcetam 500 MG/5 ML LIQUID UDC NG SCH ×2 (10:58→21:00)
[2022-02-13] MEDS: methylPREDNISolone SOD SUCC 40 MG/ML VIAL IV SCH (10:58)
[2022-02-13] MEDS: FAMOTIDINE 20 MG TABLET NG SCH ×2 (10:58→21:00)
[2022-02-13] MEDS: FOLIC ACID 1 MG TABLET PO SCH (10:58)
[2022-02-13] MEDS: ASPIRIN 81 MG TAB.CHEW PO SCH (10:58)
[2022-02-13] MEDS: NYSTATIN CREAM 30 GM TUBE TOP SCH ×2 (10:59→21:00)
[2022-02-13] MEDS: REMEDY ESSENTIAL ZINC PASTE 113 GM TOP SCH ×2 (10:59→21:00)
[2022-02-13] MEDS: DORZOLAMIDE/TIMOLOL OPHT DROP 10 ML BOTTLE LEFTEYE SCH ×2 (10:59→17:41)
[2022-02-13] MEDS: GLUCERNA 1.2 1000ML LIQUID GT PRN (12:00)
[2022-02-13] MEDS ORDERED: POTASSIUM CHLORIDE 100 ML ONE (12:01)
[2022-02-13] MEDS: POTASSIUM CHLORIDE 50 ML IV SCH ×2 (12:08→13:56)
--- NOTE | 2022-02-13 20:00 | NUR ---
Assume rcare of patient at 1930. Pt is awake in bed, with eyes opened. Propoifol is off Unresponsive to command. E xremities are flacid and b/l lower extremities are spastic.On vent to Trach Shiley #8, Cuff is inflated. No bleeding at the trach site. Abd is distended, Peg tube in place, and patent. Tube feed infusing at 60 ml/hr. Barrera is intact and patent. R femoral TLC intact and patent. Edema to the b/l upper extremities.R upper chest dressing clean and dry. Ruooer arm dressing is moist. New dewssing placed and foam applied, peg tube site cleansed and dressing changed.
[2022-02-13] MEDS: LATANOPROST OPHT DROP 2.5 ML BOTTLE EACHEYE SCH (21:00)
[2022-02-13] MEDS: ATORVASTATIN 40 MG TABLET PO SCH (21:00)
--- NOTE | 2022-02-13 21:00 | NUR ---
Morphine sulfate administered for s/s pain SBP 155/78, hR 84. sMALL AMOUNT O SEROSANG DRAINAGE ON DRESSING AT TRACH SITE. RT IS AT THE BEDSIDE.
[2022-02-13] MEDS ORDERED: ATORVASTATIN 20 MG TABLET ONE (21:10)
[2022-02-13] MEDS ORDERED: METOPROLOL SUCCINATE XL 25 MG TAB.SR.24H PO ONE (21:12)
[2022-02-13] MEDS ORDERED: MORPHINE SULFATE 2 MG/1 ML DISP.SYRIN ONE (21:13)
--- NOTE | 2022-02-13 21:15 | NUR ---
Received pt trached with Shiley#8 XLT Distal trach, which is in place and secured, on Huffman vent with the following settings: AC-10, Vt-350, FIO2-40%. No s/s of respiratory distress noted. Airway care done, pt responded to physical stimuli. Resus. bag and back up trach at bedside. Vent and alarms on and audible.
[2022-02-13] MEDS ORDERED: METOPROLOL TARTRATE 50 MG TABLET ONE (21:20)
[2022-02-14] VITALS (9 sets, daily range): BP systolic 128–157; BP diastolic 62–83
[2022-02-14] MEDS ORDERED: MORPHINE SULFATE 2 MG/1 ML DISP.SYRIN ONE (05:22)
[2022-02-14] MEDS: MORPHINE SULFATE 2 MG/1 ML DISP.SYRIN IV PRN (05:29)
--- NOTE | 2022-02-14 05:32 | NUR ---
Patient is awake with leye swellin and closed. BP 147/69. Morhjine, HR 88. admnistered as ordered. Will continue to observe patient.Tracheostomy site drains small amount of serosang drainage.
--- NOTE | 2022-02-14 06:18 | NUR ---
[facility] the [facility].
[2022-02-14 06:28] LABS: MEAN CORPUSCULAR HEMOGLOBIN 30.6 uug (24.7-32.8); MEAN CORPUSCULAR VOLUME 94.7 fL (75.5-95.3); PLATELET COUNT (AUTO) 334 K/uL (179-408)
[2022-02-14 06:56] LABS: HEMATOCRIT 20.7 % (31.2-41.9)
--- NOTE | 2022-02-14 07:30 | NUR ---
Lab reporting critical hgb 6.7 per ED charge nurse.. BP 1138/72. Pt is asymptomatic. paged Awaiting response. Endorse report to ed RNClarence.
[2022-02-14 07:32] LABS: CREATININE 0.5 mg/dL (0.6-1.3); MAGNESIUM 1.9 mg/dL (1.8-2.4); PHOSPHOROUS 3.8 mg/dL (2.5-4.9); POTASSIUM 3.8 mmol/L (3.5-5.1)
--- NOTE | 2022-02-14 07:44 | NUR ---
PT IS RESTING COMFORTABLY IN BED #1B. NO S/S OF ACUTE DISTRESS AT THIS TIME. DR GUNTER WAS CALLED TO REPORT PT's Hgb = 6.7. PT HAD ANOTHER BLOOD TEST TO VERIFY RESULTS. CONTINUE TO MONITOR THE PT.
[2022-02-14 07:51] LABS: HEMATOCRIT 24.1 % (31.2-41.9)
--- NOTE | 2022-02-14 07:54 | NUR ---
Correction BP 138/72.
[2022-02-14] MEDS: REMEDY ESSENTIAL ZINC PASTE 113 GM TOP SCH ×2 (09:00→21:20)
--- NOTE | 2022-02-14 09:02 | NUR ---
DR GALVEZ EVALUATED THE PT. DR MCCARTHY WAS CALLED WITH NEW LAB RESULTS. ACCORDING TO DR GALVEZ AND DR GUNTER EVALUATION AND ORDERS PT IS GOING TO BE TRANSFERED [facility] UNIT. CONTINUE TO MONITOR THE PT.
[2022-02-14] MEDS: predniSONE 10 MG TABLET GT SCH (09:39)
[2022-02-14] MEDS: FAMOTIDINE 20 MG TABLET NG SCH ×2 (09:40→21:18)
[2022-02-14] MEDS: ASPIRIN 81 MG TAB.CHEW PO SCH (09:40)
[2022-02-14] MEDS: levETIRAcetam 500 MG/5 ML LIQUID UDC NG SCH ×2 (09:40→21:18)
[2022-02-14] MEDS: DORZOLAMIDE/TIMOLOL OPHT DROP 10 ML BOTTLE LEFTEYE SCH ×2 (09:40→16:08)
[2022-02-14] MEDS: FLUCONAZOLE 100 MG TABLET PO SCH (09:40)
[2022-02-14] MEDS: FOLIC ACID 1 MG TABLET PO SCH (09:40)
[2022-02-14] MEDS: METOPROLOL TARTRATE 25 MG TABLET PO SCH ×2 (09:41→21:18)
[2022-02-14] MEDS: MEMANTINE HCL 10 MG TABLET PO SCH (09:41)
[2022-02-14] MEDS: CLOTRIMAZOLE 1% CREAM 30 GM TUBE TOP SCH ×2 (09:42→16:08)
[2022-02-14] MEDS: NYSTATIN CREAM 30 GM TUBE TOP SCH ×2 (09:42→21:00)
--- NOTE | 2022-02-14 10:57 | NUR ---
Received report from ER nurse. Patient now on unit.
--- NOTE | 2022-02-14 11:09 | NUR ---
PT WAS TRANSFERED TO [facility] ROOM #[id number]. REPORT WAS GIVEN TO RN ADAM.
--- NOTE | 2022-02-14 18:37 | NUR ---
Crepitus noted on patient that seems to have gotten a bit worse since admitted onto unit. Dennise MAGAÑA notified. Will continue to monitor patient. Will endorse information to PM nurse.
[2022-02-14] MEDS: LATANOPROST OPHT DROP 2.5 ML BOTTLE EACHEYE SCH (20:56)
[2022-02-14] MEDS ORDERED: ATORVASTATIN 40 MG TABLET ONE (21:17)
[2022-02-14] MEDS ORDERED: METOPROLOL TARTRATE 25 MG TABLET ONE (21:17)
[2022-02-14] MEDS ORDERED: FAMOTIDINE 20 MG TABLET ONE (21:17)
[2022-02-14] MEDS ORDERED: levETIRAcetam 500 MG/5 ML LIQUID UDC ONE (21:17)
[2022-02-14] MEDS: ATORVASTATIN 40 MG TABLET PO SCH (21:18)
--- NOTE | 2022-02-14 21:22 | NUR ---
pt's GT meds not profiled but over ride done by SUP from [facility]
[2022-02-15 04:42] VITALS: BP 145/99
--- NOTE | 2022-02-15 06:30 | NUR ---
pt rested well in between care; suctioned oral and trache secretions; repositioned q2h; GTF off; no residual; remains having crepitus; trache care done and also by RT; VSS; continue to monitor; continue plan of care.
[2022-02-15 07:24] LABS: CREATININE 0.5 mg/dL (0.6-1.3); MAGNESIUM 1.9 mg/dL (1.8-2.4); PHOSPHOROUS 3.4 mg/dL (2.5-4.9); POTASSIUM 3.8 mmol/L (3.5-5.1)
[2022-02-15 07:41] VITALS: BP 151/91
[2022-02-15 08:21] LABS: HEMATOCRIT 24.8 % (31.2-41.9); MEAN CORPUSCULAR HEMOGLOBIN 30.7 uug (24.7-32.8); MEAN CORPUSCULAR VOLUME 94.3 fL (75.5-95.3); PLATELET COUNT (AUTO) 314 K/uL (179-408)
[2022-02-15] MEDS: predniSONE 10 MG TABLET GT SCH (09:19)
[2022-02-15] MEDS: FLUCONAZOLE 100 MG TABLET PO SCH (09:19)
[2022-02-15] MEDS: REMEDY ESSENTIAL ZINC PASTE 113 GM TOP SCH ×2 (09:20→22:13)
[2022-02-15] MEDS: GLUCERNA 1.2 1000ML LIQUID GT PRN (09:20)
[2022-02-15] MEDS: NYSTATIN CREAM 30 GM TUBE TOP SCH ×2 (09:20→22:13)
[2022-02-15] MEDS: DORZOLAMIDE/TIMOLOL OPHT DROP 10 ML BOTTLE LEFTEYE SCH ×2 (09:20→16:14)
[2022-02-15] MEDS: CLOTRIMAZOLE 1% CREAM 30 GM TUBE TOP SCH ×2 (09:21→16:15)
[2022-02-15] MEDS: METOPROLOL TARTRATE 25 MG TABLET PO SCH ×2 (09:36→22:12)
[2022-02-15] MEDS: levETIRAcetam 500 MG/5 ML LIQUID UDC NG SCH ×2 (09:36→22:11)
[2022-02-15] MEDS: ASPIRIN 81 MG TAB.CHEW PO SCH (09:36)
[2022-02-15] MEDS: MEMANTINE HCL 10 MG TABLET PO SCH (09:36)
[2022-02-15] MEDS: FAMOTIDINE 20 MG TABLET NG SCH ×2 (09:37→22:12)
[2022-02-15] MEDS: FOLIC ACID 1 MG TABLET PO SCH (09:37)
--- NOTE | 2022-02-15 11:40 | NUR ---
SEEN BY DR GALVEZ NOTED CXR RESULTS, AWARE ABOUT CHEST KREPITUS. PATIENT TOLERATING VENT SETTINGS SATURATING 95%
[2022-02-15] MEDS: PROTEIN SUPPLEMENT (PROSTAT) 30 ML LIQUID GT SCH (16:14)
[2022-02-15 16:55] VITALS: BP 140/68
--- NOTE | 2022-02-15 18:04 | NUR ---
CONTINUE WITH [facility] MONITORING SR ON THE 80'S. SATURATING 95% ON CURRENT VENT SETTINGS. TOLERATING GT FEEDING WELL. AFEBRILE
[2022-02-15 20:00] VITALS: BP 159/84
--- NOTE | 2022-02-15 20:00 | NUR ---
ROUNDS MADE PATIENT IN BED ,TRACH TO VENT RATE 10/TV350/40% FIO2 PATIENT TOLERATING VENT WETTING NO RESPIRATORY DISTRESS NOTED ,BREATHING EVEN AND UNLABORED, SATURATION 93 TO 94 5 SUCTION PATIENT VIA TRACH AND ORALLY WITH MINIMAL VIA TRACH WHITISH SMALL ORAL SECRETION .TF IN PROGRESS VIA THE PEG PATIENT ON GLUCERNA AT 60 ML/HR RESIDUAL CHECK VERY MINIMAL 10 PATIENT TOLERATING TUBE FEEDING HOB UP AND ASPIRATION PRECAUTION OBSERVED . F/C TO BSD WITH YELLOWISH URINE WITH OCCASIONAL SEDIMENTS .PATIENT ON A SPECIAL BED -[employer] MATTRESS.
[2022-02-15] MEDS: ATORVASTATIN 40 MG TABLET PO SCH (22:12)
[2022-02-15] MEDS: LATANOPROST OPHT DROP 2.5 ML BOTTLE EACHEYE SCH (22:13)
[2022-02-16] VITALS: BP 129/67
[2022-02-16 04:00] VITALS: BP 109/76
[2022-02-16 06:18] LABS: MEAN CORPUSCULAR HEMOGLOBIN 30.8 uug (24.7-32.8); MEAN CORPUSCULAR VOLUME 94.9 fL (75.5-95.3); PLATELET COUNT (AUTO) 300 K/uL (179-408)
[2022-02-16 07:02] LABS: CARBON DIOXIDE 35 mmol/L (21-32); CHLORIDE 104 mmol/L (98-107); CREATININE 0.4 mg/dL (0.6-1.3); GLUCOSE 123 mg/dL (74-106); MAGNESIUM 1.9 mg/dL (1.8-2.4); PHOSPHOROUS 3.3 mg/dL (2.5-4.9); POTASSIUM 3.4 mmol/L (3.5-5.1); UREA NITROGEN, BLOOD 22 mg/dL (7-18)
[2022-02-16 07:42] VITALS: BP 154/80
--- NOTE | 2022-02-16 08:06 | NUR ---
Patient received trach to vent via Shiley 8 XLT-D. Patient is on given settings of AC RR 10, VT 350, and 40% Fio2. PRN sxn provided and trach care done. Alarms on and audible with back up trach and ambu bag at bedside. Will continue to monitor thorugh out shift.
[2022-02-16] MEDS ORDERED: POTASSIUM CHLORIDE 20 MEQ POWDER PACKET GT ONE (08:45)
[2022-02-16] MEDS: levETIRAcetam 500 MG/5 ML LIQUID UDC NG SCH ×2 (09:18→20:34)
[2022-02-16] MEDS: ASPIRIN 81 MG TAB.CHEW PO SCH (09:18)
[2022-02-16] MEDS: FOLIC ACID 1 MG TABLET PO SCH (09:19)
[2022-02-16] MEDS: MEMANTINE HCL 10 MG TABLET PO SCH (09:19)
[2022-02-16] MEDS: FAMOTIDINE 20 MG TABLET NG SCH ×2 (09:19→20:35)
[2022-02-16] MEDS: DORZOLAMIDE/TIMOLOL OPHT DROP 10 ML BOTTLE LEFTEYE SCH ×2 (09:20→16:48)
[2022-02-16] MEDS: METOPROLOL TARTRATE 25 MG TABLET PO SCH ×2 (09:20→20:35)
[2022-02-16] MEDS: PROTEIN SUPPLEMENT (PROSTAT) 30 ML LIQUID GT SCH ×2 (09:20→16:48)
[2022-02-16] MEDS: predniSONE 10 MG TABLET GT SCH (09:20)
[2022-02-16] MEDS: NYSTATIN CREAM 30 GM TUBE TOP SCH ×2 (09:21→20:37)
[2022-02-16] MEDS: CLOTRIMAZOLE 1% CREAM 30 GM TUBE TOP SCH ×2 (09:21→16:48)
[2022-02-16] MEDS: REMEDY ESSENTIAL ZINC PASTE 113 GM TOP SCH ×2 (09:21→20:35)
[2022-02-16 10:11] LABS: ABG BASE EXCESS 9.1 mmol/L; ABG HCO3 35.2 mmol/L; ABG PCO2 56.4 mmHg (35.0-45.0); ABG PH 7.413 (7.350-7.450); ABG PO2 67.6 mmHg (75.0-100.0); ABG SITE LEFT RADIAL; ABG TOTAL HEMOGLOBIN 10.6 G/dL (12.0-16.0); CPAP,BG 10 cmH20; MetHb 0.3 % (0.0-1.5); O2Hb 91.1 % (94.0-97.0); VENT MODE CPAP
--- NOTE | 2022-02-16 11:00 | NUR ---
Patient placed back on AC from CPAP settings. Desaturation and increased WoB noted. @1000 RSBI calulated to 71
[2022-02-16 11:53] VITALS: BP 133/62
[2022-02-16 16:41] VITALS: BP 139/74
--- NOTE | 2022-02-16 18:14 | NUR ---
PATIENT PLACED ALLEN ON VENT SETS AT 10-350-40 SATURATING 95%
--- NOTE | 2022-02-16 19:30 | NUR ---
Received patient lying in bed. Non-verbal, unable to track. Obtunded. Appears comfortable in bed. Trach to vent in place. GT feeding infusing. NSR on tele with HR of 82/min. Right femoral central line with triple lumen intact and patent. Barrera catheter intact and draining via gravity. Skin tear on right arm with dressing dry and clean. Safety measure initiated and call light within reached. Continue to monitor.
[2022-02-16 20:00] VITALS: BP 143/76
[2022-02-16] MEDS: ATORVASTATIN 40 MG TABLET PO SCH (20:35)
[2022-02-16] MEDS: LATANOPROST OPHT DROP 2.5 ML BOTTLE EACHEYE SCH (20:37)
[2022-02-17] VITALS: BP 148/62
[2022-02-17 04:00] VITALS: BP 152/76
--- NOTE | 2022-02-17 05:55 | NUR ---
Patient appears to be rested throughout the night. No signs of aspiration or respiratory distress. NSR on tele with HR of 89/min. GTF running at 60cc/hr. GT feeding/flushing well tolerated. Barrera catheter care done via gravity. Provided comfort measures. Assessed tracheostomy and need to suction.
[2022-02-17 06:40] LABS: CREATININE 0.5 mg/dL (0.6-1.3); MAGNESIUM 1.7 mg/dL (1.8-2.4); PHOSPHOROUS 2.9 mg/dL (2.5-4.9); POTASSIUM 3.6 mmol/L (3.5-5.1)
[2022-02-17 06:49] LABS: HEMATOCRIT 23.7 % (31.2-41.9); MEAN CORPUSCULAR HEMOGLOBIN 32.3 uug (24.7-32.8); MEAN CORPUSCULAR VOLUME 95.3 fL (75.5-95.3); PLATELET COUNT (AUTO) 316 K/uL (179-408)
[2022-02-17 07:49] VITALS: BP 135/72
--- NOTE | 2022-02-17 08:00 | NUR ---
PATIENTS REMAINS OBTUNDED, NO SS OF PAIN OR RESPIRATORY DISTRESS. SATURATING 93-94% ON CURRENT VENT SETTINGS 10-350-[address] BY [address] STOUT AND DR PRICE SEE NOTES
--- NOTE | 2022-02-17 08:10 | NUR ---
PT PLACED ON CPAP 0 TEMPORARILY FOR RSBI CALCULATION. RR 22/ VT 176. RSBI 125. PT SHOWS INCREASED WOB AND O2 DESATURATION. PT PLACED BACK ON A/C MODE, WOB AND O2 SATURATION IMPROVED. CONT. POX AT BEDSIDE. WILL CONTINUE TO MONITOR.
[2022-02-17] MEDS ORDERED: POTASSIUM CHLORIDE 20 MEQ POWDER PACKET GT ONE (08:30)
[2022-02-17] MEDS: MAGNESIUM SULFATE/D5W 100 ML IV SCH ×2 (08:51→10:24)
[2022-02-17] MEDS: FOLIC ACID 1 MG TABLET PO SCH (08:52)
[2022-02-17] MEDS: FAMOTIDINE 20 MG TABLET NG SCH (08:52)
[2022-02-17] MEDS: ASPIRIN 81 MG TAB.CHEW PO SCH (08:52)
[2022-02-17] MEDS: levETIRAcetam 500 MG/5 ML LIQUID UDC NG SCH (08:52)
[2022-02-17] MEDS: MEMANTINE HCL 10 MG TABLET PO SCH (08:52)
[2022-02-17] MEDS: CLOTRIMAZOLE 1% CREAM 30 GM TUBE TOP SCH ×2 (08:53→17:03)
[2022-02-17] MEDS: PROTEIN SUPPLEMENT (PROSTAT) 30 ML LIQUID GT SCH ×2 (08:53→17:02)
[2022-02-17] MEDS: DORZOLAMIDE/TIMOLOL OPHT DROP 10 ML BOTTLE LEFTEYE SCH ×2 (08:53→17:03)
[2022-02-17] MEDS: NYSTATIN CREAM 30 GM TUBE TOP SCH (08:54)
[2022-02-17] MEDS: REMEDY ESSENTIAL ZINC PASTE 113 GM TOP SCH (08:54)
[2022-02-17] MEDS: METOPROLOL TARTRATE 25 MG TABLET PO SCH (08:55)
[2022-02-17] MEDS: GLUCERNA 1.2 1000ML LIQUID GT PRN (08:57)
[2022-02-17] MEDS ORDERED: FUROSEMIDE 20 MG/2 ML VIAL IV ONE (09:00)
[2022-02-17] MEDS ORDERED: predniSONE 5 MG TABLET GT SCH (09:00)
--- NOTE | 2022-02-17 11:38 | NUR ---
KEEP COMFORTABLE, MAGNESIUM REPLACED VIA CENTRL LINE RIGHT GROIN
[2022-02-17 11:51] VITALS: BP 120/44
[2022-02-17 16:00] VITALS: BP 117/66
[2022-02-17] MEDS ORDERED: PROT30LI GT (17:31)
[2022-02-17] MEDS ORDERED: METO25TA6 PO (17:31)
[2022-02-17] MEDS ORDERED: FAMO20TA8 NG (17:31)
[2022-02-17] MEDS ORDERED: ATOR40TA PO (17:31)
[2022-02-17] MEDS ORDERED: Glucerna 1.2 GT (17:31)
[2022-02-17] MEDS ORDERED: ALBU2.5V7 NEB (17:31)
[2022-02-17] MEDS ORDERED: FOLI1TAB94 PO (17:31)
[2022-02-17] MEDS ORDERED: ASPI81TA31 PO (17:31)
[2022-02-17] MEDS ORDERED: ACET325T53 PO (17:31)
[2022-02-17] MEDS ORDERED: MEMA10TA PO (17:31)
[2022-02-17] MEDS ORDERED: LEVE100S NG (17:31)
--- NOTE | 2022-02-17 20:15 | NUR ---
Patient picked up by [facility][id number] accompanied by 2 paramedics and RT via gurney and discharge to [facility] Room 9A. Report provided to RT and paramedics. Discontinued central line prior to forklift picker. Removed/stop GT feeding. Patient VS WNL. All belongings and records with paramedics.
== END 2022-02-17 20:30 | DRG 853 ==
LOC: ER 19:50 → TRANSITION 01-27 02:48 → TELE-TD3 02-14 10:05
PROVIDERS: ATTEND Nurse Practitioner Acute Care
PROC: 5A1955Z Respiratory Ventilation, Greater than 96 Consecutive Hours (ICD-10-PCS; principal; 2022-01-27)
PROC: 0BH17EZ Insertion of Endotracheal Airway into Trachea, Via Natural or Artificial Opening (ICD-10-PCS; 2022-01-27)
PROC: 0W9930Z Drainage of Right Pleural Cavity with Drainage Device, Percutaneous Approach (ICD-10-PCS; 2022-01-27)
PROC: 0WQ8XZZ Repair Chest Wall, External Approach (ICD-10-PCS; 2022-01-27)
PROC: 0W9B30Z Drainage of Left Pleural Cavity with Drainage Device, Percutaneous Approach (ICD-10-PCS; 2022-01-27)
PROC: 02HV33Z Insertion of Infusion Device into Superior Vena Cava, Percutaneous Approach (ICD-10-PCS; 2022-01-27)
PROC: B548ZZA Ultrasonography of Superior Vena Cava, Guidance (ICD-10-PCS; 2022-01-27)
PROC: 03HB33Z Insertion of Infusion Device into Right Radial Artery, Percutaneous Approach (ICD-10-PCS; 2022-01-28)
PROC: 0W9930Z Drainage of Right Pleural Cavity with Drainage Device, Percutaneous Approach (ICD-10-PCS; 2022-01-29)
PROC: 0DH63UZ Insertion of Feeding Device into Stomach, Percutaneous Approach (ICD-10-PCS; 2022-02-07)
PROC: 0WP9X0Z Removal of Drainage Device from Right Pleural Cavity, External Approach (ICD-10-PCS; 2022-02-12)
PROC: 0BH17EZ Insertion of Endotracheal Airway into Trachea, Via Natural or Artificial Opening (ICD-10-PCS; 2022-02-13)
DX: A41.9 Sepsis, unspecified organism (principal); G93.41 Metabolic encephalopathy; J69.0 Pneumonitis due to inhalation of food and vomit; J96.01 Acute respiratory failure with hypoxia; J96.02 Acute respiratory failure with hypercapnia; R65.21 Severe sepsis with septic shock; I21.A1 Myocardial infarction type 2; N17.0 Acute kidney failure with tubular necrosis; I46.9 Cardiac arrest, cause unspecified; I50.31 Acute diastolic (congestive) heart failure; K72.00 Acute and subacute hepatic failure without coma; I63.9 Cerebral infarction, unspecified; J93.9 Pneumothorax, unspecified; E44.0 Moderate protein-calorie malnutrition; E87.0 Hyperosmolality and hypernatremia; J93.82 Other air leak; G93.1 Anoxic brain damage, not elsewhere classified; D64.9 Anemia, unspecified; E83.42 Hypomagnesemia; E83.51 Hypocalcemia; F03.90 Unspecified dementia, unspecified severity, without behavioral disturbance, psychotic disturbance, mood disturbance, and anxiety; G40.909 Epilepsy, unspecified, not intractable, without status epilepticus; I11.0 Hypertensive heart disease with heart failure; R13.10 Dysphagia, unspecified; Z87.891 Personal history of nicotine dependence; E88.09 Other disorders of plasma-protein metabolism, not elsewhere classified; I25.10 Atherosclerotic heart disease of native coronary artery without angina pectoris; E87.6 Hypokalemia; R62.7 Adult failure to thrive; J98.2 Interstitial emphysema; J32.9 Chronic sinusitis, unspecified; D50.9 Iron deficiency anemia, unspecified; K29.70 Gastritis, unspecified, without bleeding; H70.93 Unspecified mastoiditis, bilateral
CPT/HCPCS: 36415; 36556; 36600; 43761; 51702; 70030-TC; 70450; 70490; 71045; 71250; 83550; 83605; 83735; 84100; 84443; 84478; 84484; 85018; 85025; 85610; 86850; 86900; 86901; 87040; 87070; 87086; 87400; 92950; 93005; 93307; 94002; 94003; 94760; 95819; 99082-TC; A4649; A4663; A6213; G0378; J0171; J0330; J0456; J0610; J0690; J1100; J1165; J1644; J1940; J1953; J2060; J2250; J2270; J2370; J2405; J2543; J2765; J2920; J2930; J3010; J3370; J3475; J3480; J3490; J7040; J7042; J7050; J7120; J7512; P9047